=== PATIENT | male | born 1975 | race Two or more races ===

== ENCOUNTER → 2025-03-04 | Outpatient (BNVA) | payer MEDICAID, SELFPAY | END | disposition home or self-care (01) | PROVIDERS: PCP Nurse Practitioner Family; Referring Provider Nurse Practitioner Family; Visit Provider Nurse Practitioner Family | DX: B35.9 Dermatophytosis, unspecified (principal) | CPT/HCPCS: 99214 ==

== ENCOUNTER → 2025-03-08 | Outpatient (BNVA) | payer MEDICAID, SELFPAY | END | disposition home or self-care (01) | PROVIDERS: PCP Nurse Practitioner Primary Care; Referring Provider Nurse Practitioner Primary Care; Visit Provider Nurse Practitioner Primary Care | DX: Z71.2 Person consulting for explanation of examination or test findings (principal); I10 Essential (primary) hypertension; E78.5 Hyperlipidemia, unspecified; Z13.29 Encounter for screening for other suspected endocrine disorder; Z13.1 Encounter for screening for diabetes mellitus; Z11.3 Encounter for screening for infections with a predominantly sexual mode of transmission; Z28.21 Immunization not carried out because of patient refusal; Z12.5 Encounter for screening for malignant neoplasm of prostate | CPT/HCPCS: 99173; 99215 ==

== ENCOUNTER → 2025-03-15 | Outpatient (BNVA) | payer MEDICAID, SELFPAY | END | disposition home or self-care (01) | PROVIDERS: PCP Nurse Practitioner Family; Referring Provider Nurse Practitioner Family; Visit Provider Nurse Practitioner Family | DX: Z71.2 Person consulting for explanation of examination or test findings (principal); Z28.21 Immunization not carried out because of patient refusal; I10 Essential (primary) hypertension | CPT/HCPCS: 99213 ==

== ENCOUNTER → 2025-05-12 | Outpatient (BNVA) | payer MEDICAID, SELFPAY | END | disposition home or self-care (01) | PROVIDERS: PCP Nurse Practitioner Primary Care; Referring Provider Nurse Practitioner Primary Care; Visit Provider Nurse Practitioner Primary Care | DX: E78.2 Mixed hyperlipidemia (principal); I10 Essential (primary) hypertension; R94.5 Abnormal results of liver function studies; R73.03 Prediabetes | CPT/HCPCS: 99213 ==

== ENCOUNTER 2025-05-24 19:09 | Inpatient (IN) | payer MEDICAID, SELFPAY ==
--- NOTE | 2025-05-24 19:18 | EKG_ITS ---
[facility] Test Date: 2025-05-24 Pat Name: CHANTEL LEWIS Department: Room: - Gender: Male Track Sweeper: : 1975 Requested By: Sharonda Carter Order Number: [id number] Reading MD: Sharonda Carter Measurements Intervals [place] Rate: 82 P: 53 [place]: 195 QRS: 58 QRSD: 110 T: 55 QT: 377 QTc: 441 Interpretive Statements SINUS RHYTHM EARLY REPOLARIZATION [ST ELEVATION WITH NORMALLY INFLECTED T-WAVE] Compared to ECG 06/04/2022 19:23:47 Early repolarization now present Sinus tachycardia no longer present Myocardial infarct finding no longer present /store/S0/[id number]/ecg/[id number].pdf
--- NOTE | 2025-05-24 19:18 | PD.EDNEURO ---
Neuro Symptoms Deficit-RME/HPI General Chief Complaint: General Adult/Misc Complain Stated Complaint: UNABLE TO MOVE L) ARM, DROOPING L) FACE, LKW 1810 Time Seen by Provider: 05/24/25 19:18 Arrival date/time: 05/24/25 19:09 Limitations: no limitations RME / HPI RME / HPI Narrative: Dr. Betts?s Main ED Evaluation: 50yo male with a history of hemorrhagic CVA (2019), HTN, HLD BIB his daughter presents to the ED for complaints of weakness to the RUE and worsening slurred speech x 30 minutes [employer]AB[employer]. Stroke alert initiated at 1912. Patient's daughter states the patient was having right hand numbness on Friday that resolved. Tonight, he started having sudden onset RUE weakness and worsening slurred speech. Denies any headache, lightheadedness, dizziness, N/V, or any other associated symptoms. Denies tobacco or illicit drug use. Patient does drink a 6-pack of beers per day. Blood sugar here is 113. Related Data Home Medications ?Medication ?Instructions ?Recorded ?Confirmed lisinopril 10 mg tablet 10 mg PO QDAY 03/04/25 03/15/25 Previous Rx's ?Medication ?Instructions ?Recorded atorvastatin 20 mg tablet 20 mg PO QDAY #90 tabs 05/12/25 cholecalciferol (vitamin D3) 1,250 1,250 mcg PO QWEEK 6 weeks #6 caps 05/12/25 mcg (50,000 unit) capsule Allergies Allergy/AdvReac Type Severity Reaction Status Date / Time bee venom protein (honey bee) Allergy Severe Anaphylaxis Verified 05/24/25 19:14 Review of Systems Review of Systems Systems Reviewed: All systems reviewed, normal except as documented ED Exam General Limitations: Present no limitations General appearance: Present alert and in no apparent distress Head Head exam: Present atraumatic Eye Eye exam: Present normal appearance, PERRL and EOMI ENT ENT exam: Present normal exam, normal oropharynx and mucous membranes moist Neck Neck exam: Present normal inspection, full ROM and trachea midline Chest Chest inspection: Present normal inspection and symmetric chest wall rise Respiratory Respiratory exam: Present normal lung sounds bilaterally Cardiovascular Cardiovascular exam: Present regular rate, normal rhythm and normal heart sounds Abdominal Exam Abdominal exam: Present soft Extremities Exam Extremities exam: Present other (weakness to the RUE, full ROM of the LUE and BLE, sensations are intact) Back Exam Back exam: Present normal inspection and full ROM Neurological Exam Neurological exam: Present alert, oriented X3 and other (left facial droop, + dysarthria, weakness to the RUE, full ROM of the LUE and BLE) Psychiatric Psychiatric exam: Present normal affect and normal mood Skin Skin exam: Present warm, dry, intact and normal color Course Course Course Narrative: 1912: Stroke alert initiated. Quality Measures Suspected type of Stroke: TIA Tenecteplase given: Reason(s) TPA not given: Stroke severity too mild (non-disabling) (symptoms improving) not given stroke Orders Category Date Time Status Admit to Inpatient Status Routine Admission 05/24/25 22:36 Active Patient Condition Routine Admission 05/24/25 22:36 Ordered Bedside Blood Glucose NOW Care 05/24/25 19:18 Active COVID-19 Screening Questionnaire NOW Care 05/24/25 21:41 Active Retail Merchandising Manager NOW Care 05/24/25 19:18 Active Continuous Pulse Oximetry NOW Care 05/24/25 19:18 Completed EKG (ED ONLY) *Do not use* NOW Care 05/24/25 19:18 Completed In and Out Catheter NEEDED Care 05/24/25 19:18 Active Insert IV NOW Care 05/24/25 19:18 Active NIH Stroke Scale now Care 05/24/25 19:18 Active NPO NOW Care 05/24/25 19:18 Active Neuro Check Q4H Care 05/24/25 22:35 Active Notify provider NEEDED Care 05/24/25 22:36 Active Nurse Swallow Screen x1 Care 05/24/25 19:18 Active Consult to Neurology / Tele-Neurology Stat Cons 05/24/25 19:18 Active CA echo doppler complete Routine Exams 05/24/25 22:[address] angio stroke protocol Stat Exams 05/24/25 19:[address] stroke protocol Stat Exams 05/24/25 19:18 Completed EKG (ED Only) Stat Exams 05/24/25 19:18 Draft Alcohol, Blood Medical Routine Lab 05/24/25 22:33 Completed Ammonia Routine Lab 05/24/25 22:33 Received CBC AM DRAW Lab 05/25/25 05:00 Ordered CBC AM DRAW Lab 05/26/25 05:00 Ordered CBC AM DRAW Lab 05/27/25 05:00 Ordered CBC AM DRAW Lab 05/28/25 05:00 Ordered CBC AM DRAW Lab 05/29/25 05:00 Ordered CBC Stat Lab 05/24/25 19:25 Completed Comprehensive Metabolic Panel AM DRAW Lab 05/25/25 05:00 Ordered Comprehensive Metabolic Panel AM DRAW Lab 05/26/25 05:00 Ordered Comprehensive Metabolic Panel AM DRAW Lab 05/27/25 05:00 Ordered Comprehensive Metabolic Panel AM DRAW Lab 05/28/25 05:00 Ordered Comprehensive Metabolic Panel AM DRAW Lab 05/29/25 05:00 Ordered Comprehensive Metabolic Panel Stat Lab 05/24/25 19:25 Completed Drug Screen,Urine Stat Lab 05/24/25 20:26 Completed Lipid Panel AM DRAW Lab 05/25/25 05:00 Ordered Magnesium AM DRAW Lab 05/25/25 05:00 Ordered Magnesium Stat Lab 05/24/25 19:25 Completed Partial Thromboplastin Time Stat Lab 05/24/25 19:25 Completed Prothrombin Time with INR Stat Lab 05/24/25 19:25 Completed Troponin I Stat Lab 05/24/25 19:25 Completed Urinalysis, C/S if Indicated Stat Lab 05/24/25 20:26 Completed Acetaminophen Tab [Tylenol Tab] Med 05/24/25 22:35 Active 650 mg PO Q6H PRN Aspirin [Ecotrin] Med 05/24/25 20:14 Discontinued 81 mg PO X1 ONE Clopidogrel [Plavix] Med 05/24/25 20:14 Discontinued 75 mg PO X1 ONE Heparin Inj Med 05/25/25 06:00 Active 5,000 unit SC Q8HR Ondansetron Inj [Zofran Inj] Med 05/24/25 22:35 Active 4 mg IVP Q6H PRN Sodium Chloride 0.9% 1000 ml [Ns] 1,000 ml Med 05/24/25 22:45 Active IV 75 mls/hr Code Status Routine Oth 05/24/25 22:35 Ordered Oxygen Delivery NOW RT 05/24/25 19:18 Active Vital Signs Vital signs: Vital Signs Pulse Rate 88 05/24/25 19:19 Respiratory Rate 20 05/24/25 19:19 Blood Pressure 199/126 H 05/24/25 19:19 Pulse Oximetry (%) 98 05/24/25 19:19 Oxygen Delivery Method Room Air 05/24/25 19:19 Neuro Symptoms / Deficit MDM Narrative MDM Narrative:: Scribe Attestation: 05/24/25 - I, Chaya Rene, am scribing for and in the presence of Dr. Betts. Patient is a 50-year-old male with medical history notable for alcohol use disorder, hypertension, hyperlipidemia, prediabetes, prior hemorrhagic stroke presenting emergency department with concern for slurred speech, left-sided facial droop, weakness and numbness in the right upper extremity. Vital signs and exam as listed. Concern patient is having an acute stroke. Last known well approximately 20 minutes prior to arrival. Also concern for metabolic disturbance, among others. Patient does not appear acutely intoxicated, does have a history of alcohol withdrawal. Ordered labs, CT brain, CT angio of the head and neck as well as EKG. Labs without any acute hematologic or significant electrolyte abnormality, patient does have an AST of 69 ALT of 63, T. bili is normal, patient does not have any abdominal pain. Troponin not elevated. Head CT without any acute intracranial abnormalities. 1999: On re-evaluation, patient's slurred speech has resolved. Patient does have some tingling to his right hand, but has full movement of the RUE. Due to the patient's resolving symptoms, teleneurologist, Dr. Parsons, does not recommend TNKase at this time. Patient and his daughter are in agreement with this plan. Teleneurologist also recommends that we provide patient with aspirin 81 as well as Plavix 75. Does not recommend the full loading dose of aspirin given that patient symptoms are improving. 2129: Discussed case with the resident physician, attending Dr. Green from Hospitalist service regarding admission. Discussed patients ED course, exam findings, labs, and radiology results. The Hospitalist agrees to accept the patient for admission. Patient data External records reviewed:: [facility] previous records (Per chart review, patient was seen here on 06/04/22 for acute febrile illness.) Clinical information provided by:: patient and family (daughter) Social determinants that could affect healthcare access:: alcohol use Patient has the following chronic illnesses:: hemorrhagic CVA (2020), HTN, HLD How is presenting disease/condition affected by chronic disease/condition?: exacerbated by Evaluation data The following diagnostics were reviewed and interpreted by me:: lab results, radiology exam(s) and EKG tracing(s) Lab and/or radiology exams considered but not ordered:: none Interpretation Summary: EKG done at 1952, sinus rhythm, rate of 82, normal intervals, nonspecific ST-T changes, not a cardiac alert, according to my interpretation. [facility] [id number] Birthdate: 1975 Age/Sex: 50 / M Location: [facility]X Attending Dr: Ordering Physician: Sharonda Betts MD Date of Service: 05/24/25 Procedure(s): CT stroke protocol Accession Number(s): [id number] cc: Ramon Mead MD; Sharonda Betts MD~ Examination: CT brain head without contrast. 2-D sagittal coronal reconstructions Date and time of exam: May 24, 2025, 1922 hours, comparison June 04, 2022 INDICATIONS: Stroke alert, onset focal neurologic deficit including left-sided arm weakness today CTDI: vol (mGy): 51.7 DLP: (mGycm): 1019 Technique: Multiple CT axial sections of the brain have been obtained, 5 mm slice thickness. Contrast has not been administered. 2-D sagittal, coronal reconstructions have been obtained Low dose protocols were performed. One or more of the following dose reduction techniques were used; automated exposure control, adjustment of the mA and/or KV according to patient size, use of iterative reconstruction technique. Findings: No significant ventricular enlargement. Again noted small old infarct right basal ganglia Intra-axial or extra-axial hemorrhage density is not seen. No mass effect or midline shift Basal cisterns are not remarkable. Fourth ventricle is midline. Cranial vault intact. Impression: Negative for acute hemorrhage, mass effect or midline shift Dictated By: Ramon Mead MD Signed By: <Electronically signed by Ramon Mead MD in OV> 05/24/251927 [facility] Report Signed Patient: JUNE LEWISERICO [facility], [place]. Record#: [id number] Birthdate: 1975 Age/Sex: 50 / M Location: SERX Attending Dr: Ordering Physician: Sharonda Betts MD Date of Service: 05/24/25 Procedure(s): CT angio stroke protocol Accession Number(s): [id number] cc: Mich Rene MD; Ramon Mead MD; Sharonda Betts MD~ Examination: CTA carotids with intravenous contrast CTA brain, head with intravenous contrast. 2-D sagittal, coronal reconstructions. 3-D reconstructions. Exam date and time: May 24, 2025, 1930 hours INDICATIONS: Stroke alert onset focal neurologic deficit including right-sided numbness right-sided body weakness today CTDI: vol (mGy) 21.4 DLP: (mGycm) 434 Technique: Multiple CTA axial brain, head carotid images post intravenous contrast injection 75 cc, [id number]. 2-D sagittal, coronal reconstructions. 3-D reconstructions, 3-D post processing including vascular maximum intensity projection images. Low dose protocols were performed. One or more of the following dose reduction techniques were used; automated exposure control, adjustment of the mA and/or KV according to patient size, use of iterative reconstruction technique. Findings: No significant common carotid carotid bifurcation or internal carotid artery stenoses Dominant right vertebral artery with no critical vertebral artery stenoses in the neck Intracranial vertebral arteries basilar artery posterior cerebral branches fill with no large vessel occlusions Petrous juxtasellar supraclinoid portions internal carotid arteries intact No large vessel occlusions involving M1 segments middle cerebral arteries middle cerebral artery trifurcation vessels or anterior cerebral arteries IMPRESSION: No significant neck arterial stenoses No cerebral large vessel arterial occlusions or thrombus Dictated By: Ramon Mead MD Signed By: <Electronically signed by Ramon Mead MD in OV> 05/24/25 7000 Medications / Prescriptions Medications or Prescriptions considered but not ordered:: none Medication administrations:: Medication Administration History Acetaminophen (Acetaminophen 325 Mg Tablet) 650 mg PO Q6H PRN PRN Reason: Fever >100.4 Stop: 06/23/25 22:34 Aspirin (Aspirin Ec 81 Mg Tabec) 81 mg PO DAILY SONG Stop: 06/24/25 08:59 Atorvastatin Calcium (Atorvastatin Calcium 10 Mg Tablet) 20 mg PO HS SONG Stop: 06/24/25 20:59 Clopidogrel Bisulfate (Clopidogrel Bisulfate 75 Mg Tablet) 75 mg PO DAILY SONG Stop: 06/24/25 08:59 Diazepam (Diazepam Inj 5 Mg/Ml Vial 2 Ml) 5 mg IVP X1 PRN PRN Reason: Breakthrough Agitation Heparin Sodium (Porcine) (Heparin Sod Inj 5000 Unit/Ml Vial) 5,000 unit SC Q8HR [facility] Stop: 06/08/25 05:59 Sodium Chloride (Ns) 1,000 mls @ 75 mls/hr IV .[id number] [facility] Stop: 06/23/25 22:44 Thiamine HCl 100 mg/ Sodium (Chloride) 101 mls @ 202 mls/hr IV X1 ONE Stop: 05/24/25 23:16 Lorazepam (Lorazepam 0.5 Mg Tablet) 0.5 mg PO Q4HR PRN PRN Reason: CIWA Score 2-6 Stop: 05/29/25 22:43 Lorazepam (Lorazepam 0.5 Mg Tablet) 1 mg PO Q4HR PRN PRN Reason: CIWA SCORE 7-11 Stop: 05/29/25 22:43 Lorazepam (Lorazepam 0.5 Mg Tablet) 2 mg PO Q4HR PRN PRN Reason: CIWA SCORE 12-15 Stop: 05/29/25 22:43 Ondansetron HCl (Ondansetron Inj 2 Mg/Ml Inj 2 Ml) 4 mg IVP Q6H PRN; Protocol PRN Reason: NAUSEA OR VOMITING Stop: 06/23/25 22:34 Discontinued Medications Aspirin (Aspirin Ec 81 Mg Tabec) 81 mg PO X1 ONE Stop: 05/24/25 20:15 Last Admin: 05/24/25 20:20 Dose: 81 mg Documented By: AIMEE Clopidogrel Bisulfate (Clopidogrel Bisulfate 75 Mg Tablet) 75 mg PO X1 ONE Stop: 05/24/25 20:15 Last Admin: 05/24/25 20:20 Dose: 75 mg Documented By: AIMEE Folic Acid (Folic Acid Inj 1 Mg/0.2 Ml) 1 mg IVP X1 ONE Stop: 05/24/25 22:47 see above, if any Consultations Consultation(s) initiated? (list below): Yes Diagnosis Neuro Differential Diagnosis: other (See MDM) Most likely diagnosis given after review of the tests above:: see clinical impression below Admission Indicated Admission indicated?: indicated Admission Request Was there a request for admission?: Yes Admission Attestation Admission request attestation: Discussed case with [] from Hospitalist service regarding admission. Discussed patients ED course, exam findings, labs, and radiology results. The Hospitalist [agrees,declines] to accept the patient for admission. Disposition Plan Disposition Plan: Admit Critical Care Time Critical Care Time Critical Care Time: Yes Total Critical Care Time (min.): 35 Attestation: Due to a high probability of clinically significant, life threatening deterioration, the patient required my highest level of preparedness to intervene emergently and I personally spent this critical care time directly and personally managing the patient. This critical care time included obtaining a history; examining the patient; pulse oximetry; ordering and review of studies; arranging urgent treatment with development of a management plan; evaluation of patient's response to treatment; frequent reassessment; and, discussions with other providers. This critical care time was performed to assess and manage the high probability of imminent, life-threatening deterioration that could result in multi-organ failure. It was exclusive of separately billable procedures and treating other patients and teaching time. Please see MDM section and the rest of the note for further information on patient assessment and treatment.
[2025-05-24 19:19] VITALS: BP 199/126; PULSE 88; RESP 20; O2SAT 98
[2025-05-24 19:38] LABS: Basophils # (Auto) 0.1 Thou/mm3 (0.0-0.2); Basophils % (Auto) 1 % (0-2.5); Eosinophils # (Auto) 0.2 Thou/mm3 (0.0-0.5); Eosinophils % (Auto) 4 % (0-10); Hematocrit 43.3 % (41.0-53.0); Hemoglobin 15.0 g/dL (13.5-16.0); Immature Granulocytes Auto 0.01 Thou/mm3 (0.00-0.00); Lymphocytes # (Auto) 2.3 Thou/mm3 (1.0-4.8); Lymphocytes % (Auto) 36 % (10-50); Mean Corpuscular HGB Conc 34.6 g/dl (31.0-37.0); Mean Corpuscular Hemoglobin 31.0 pg (25.0-35.0); Mean Corpuscular Volume 90 fL (80-100); Monocytes # (Auto) 0.8 Thou/mm3 (0.0-0.8); Monocytes % (Auto) 12 % (0-12); Neutrophils # (Auto) 3.0 Thou/mm3 (1.8-7.7); Neutrophils % (Auto) 47 % (37-80); Nucleated Red Blood Cell # 0.00 Thou/mm3 (0.00-0.00); Nucleated Red Blood Cell % 0 /100 WBC (0); Platelet Count 202 Thou/mm3 (140-440); RDW Standard Deviation 41.3 fL (35.1-43.9); Red Blood Count 4.84 Miln/mm3 (4.50-5.90); White Blood Count 6.4 Thou/mm3 (3.8-10.6)
[2025-05-24 19:55] VITALS: PULSE 77; BMI 25.8
[2025-05-24 19:56] LABS: INR 1.0 (0.9-1.3); Partial Thromboplastin Time 29.0 Seconds (22.0-36.0); Prothrombin Time 10.5 Seconds (9.0-12.2)
[2025-05-24 20:00] LABS: Alanine Aminotransferase 63 U/L (10-49); Albumin, Serum 4.8 gm/dL (3.5-5.0); Albumin/Globulin Ratio 1.3 (1.2-2.2); Alkaline Phosphatase 99 U/L (46-116); Anion Gap 12 (7-16); Aspartate Amino Transferase 69 U/L (0-34); BUN/Creatinine Ratio 6 Ratio (12-20); Bilirubin,Total 0.4 mg/dL (0.3-1.2); Blood Urea Nitrogen < 5 mg/dL (9-23); Calcium 9.2 mg/dL (8.3-10.6); Calcium (Corrected) 9.2 mg/dL (8.5-10.1); Carbon Dioxide 26.5 mMol/L (20.0-31.0); Chloride 98 mMol/L (98-107); Creatinine (Component) 0.8 mg/dL (0.6-1.3); Estimated Creatinine Clearance 110.5 mL/min (>60); Globulin 3.8 gm/dL (2.3-3.5); Glucose 102 mg/dL (74-106); Magnesium 2.1 mg/dL (1.6-2.6); Osmolality,Calculated 269 (275-295); Potassium 3.7 mMol/L (3.4-5.1); Sodium 136 mMol/L (136-145); Total Protein 8.6 gm/dL (5.7-8.2); Troponin I < 0.020 ng/mL (0.0-0.045); eGFR > 60 See Note
[2025-05-24 20:01] VITALS: BP 175/107; PULSE 83; RESP 18; TEMP 36.9; O2SAT 95
--- NOTE | 2025-05-24 20:13 | PD.NEUROCONS ---
History of Present Illness Data of Consult Requesting Physician: Dr. Betts Consult Narrative History of present illness: [facility] Patient Name:???DEVON LEWIS Date of :???1975 Identification Number:??? Date of Service:???05/24/2025 19:14:16 Diagnosis:?R20.2 - Paresthesia of skin Impression: ?Right-sided numbness and weakness, improving (recurrent) ?H/o stroke ?DDx: TIA, acute stroke, focal seizure with Clinton's paralysis, mass lesion , hypertensive emergency vs. other ? ?Patient reports that he had sudden onset numbness in the right arm as well as weakness of the distal hand about an hour prior to ER arrival. He reports the exact same symptoms in 2019 when he was apparently diagnosed with his first stroke. CT head is negative for acute findings but there is evidence of an old lacunar stroke also on the R side (however would not explain prior R sided numbness). ? ?Explained to him that given that he thinks that his symptoms are largely better, even though NIHSS is 1, that acute thrombolytic therapy is not recommended. I explained to him that a stroke is still a consideration, but will other differentials for recurrent right-sided numbness and weakness also include seizures hence further workup for both is recommended. Dr. Betts, ER attending was also at bedside and explained the above to the patient and patient's daughter; they both expressed understanding and declined acute thrombolytic therapy, but are willing to stay back for further workup. Patient also appears to be hypertensive, hence hypertensive emergency is also a consideration. ? ?PLAN: ?- CTA head and neck, pending final read ?- Permissive hypertension up to 180/90 for the next 12 hours, then 140-160/80-90 for the next 12 hours ?- start DAPT with ASA 81 mg and Plavix 75 mg daily for 3 weeks, thereafter continue ASA 81 mg daily ?- MRI brain with and without contrast (due to concern for seizures as a differential) ?- Echocardiogram ?- PT/OT/Speech therapy ?- outpatient neurology follow up ? ?Discussed with Dr. Betts at bedside. Our recommendations are outlined below. Recommendations: ? Stroke/Telemetry Floor ? Neuro Checks ? Bedside Swallow Eval ? DVT Prophylaxis ? IV Fluids, Normal Saline ? Euglycemia and Avoid Hyperthermia (PRN Acetaminophen) Sign Out: ? Discussed with Emergency Department Provider Metrics: Last Known Well: 05/24/2025 18:30:00 Arrival Time: 05/24/2025 19:11:00 Activation Time: 05/24/2025 19:14:16 Initial Response Time: 05/24/2025 19:15:14Symptoms: R sided weakness and numbness. Initial patient interaction: 05/24/2025 19:28:46 NIHSS Assessment Completed: 05/24/2025 19:41:51Patient is not a candidate for Thrombolytic. Thrombolytic Medical Decision: 05/24/2025 19:56:54Patient was not deemed candidate for Thrombolytic because of following reasons: Stroke severity too mild (non-disabling) . Patient/Family declined . CT Head: I personally reviewed all the CT images that were available to me and it showed: No acute findings, old right basal ganglia infarct Primary Provider Notified of Diagnostic Impression and Management Plan on: 05/24/2025 20:01:58 History of Present Illness:Patient is a 50 year old Male. Patient was brought by private transportation with symptoms of R sided weakness and numbness. Patient is mostly Czech-speaking, staff member assists in translation. He states that he had just laid down for a bit, when his R arm went numb. He also felt like he was unable to terrazzo worker anything in the right hand hence he came to the ER for evaluation. He reports that he had the exact same symptoms in 2019 when he had his first stroke. He reports a history of hypertension as well as hyperlipidemia but is currently not on any antiplatelet or anticoagulant medications. He denies any history of seizures. On initial exam, patient appears alert and awake. He was able to answer all questions appropriately; subjectively, he feels that his symptoms are a lot better/improving. He did have mild sensory loss involving the right face and arm, NIHSS is 1. Slip Seat Coverer strength appeared weak on the right side according to the bedside exam however there was no drift noted on NIHSS testing. Past Medical History: ?Hypertension ?Hyperlipidemia ?Stroke Medications: No Anticoagulant use? No Antiplatelet use Reviewed EMR for current medications Allergies:? Reviewed Social History: Smoking: No Alcohol Use: Yes Family History: There is no family history of premature cerebrovascular disease pertinent to this consultation ROS : 14 Points Review of Systems was performed and was negative except mentioned in HPI. Past Surgical History: There Is No Surgical History Contributory To Today?s Visit Examination: BP(163/104),?Pulse(77),?Blood Glucose(113) 1A: Level of Consciousness - Alert; keenly responsive?+ 0 1B: Ask Month and Age - Both Questions Right?+ 0 1C: Blink Eyes & Squeeze Hands - Performs Both Tasks?+ 0 2: Test Horizontal Extraocular Movements - Normal?+ 0 3: Test Visual Clark - No Visual Loss?+ 0 4: Test Facial Palsy (Use Grimace if Obtunded) - Normal symmetry?+ 0 5A: Test Left Arm Motor Drift - No Drift for 10 Seconds?+ 0 5B: Test Right Arm Motor Drift - No Drift for 10 Seconds?+ 0 6A: Test Left Leg Motor Drift - No Drift for 5 Seconds?+ 0 6B: Test Right Leg Motor Drift - No Drift for 5 Seconds?+ 0 7: Test Limb Ataxia (FNF/Heel-Wellington) - No Ataxia?+ 0 8: Test Sensation - Mild-Moderate Loss: Less Sharp/More Dull?+ 1 9: Test Language/Aphasia - Normal; No aphasia?+ 0 10: Test Dysarthria - Normal?+ 0 11: Test Extinction/Inattention - No abnormality?+ 0 NIHSS Score:?1 Pre-Morbid Modified Grayson Scale: 0 Points = No symptoms at all Spoke with :?Dr. Betts This consult was conducted in real time using interactive audio and video technology. Patient was informed of the technology being used for this visit and agreed to proceed. Patient located in hospital and provider located at home/office setting. Patient is being evaluated for possible acute neurologic impairment and high probability of imminent or life-threatening deterioration. I spent total of 40 minutes providing care to this patient, including time for face to face visit via telemedicine, review of medical records, imaging studies and discussion of findings with providers, the patient and/or family. Dr Dakotah Parsons [facility] For Inpatient follow-up with [facility] physician please call [facility] at . As we are not an outpatient service for any post hospital discharge needs please contact the hospital for assistance. If you have any questions for the [facility] physicians or need to reconsult for clinical or diagnostic changes please contact us via [facility] at . Non-radiologist review of imaging performed to assist with emergent clinical decision-making. Remote physician workstations do not possess the same resolution, calibration, or diagnostic capabilities as hospital-based radiology reading stations, and formal radiologist read is necessary. Signature :Mars Parsons cc:: cc: Meds Home Medications and Allergies Home Medications ?Medication ?Instructions ?Recorded ?Confirmed ?Type lisinopril 10 mg tablet 10 mg PO QDAY 03/04/25 03/15/25 History Allergies Allergy/AdvReac Type Severity Reaction Status Date / Time bee venom protein (honey bee) Allergy Severe Anaphylaxis Verified 05/24/25 19:14 Exam - Neurology Vital Signs Temp Pulse Resp BP Pulse Ox O2 Del Method 98.5 F 83 18 175/107 H 95 Room Air 05/24/25 20:01 05/24/25 20:01 05/24/25 20:01 05/24/25 20:01 05/24/25 20:01 05/24/25 20:01 Results Labs 05/24/25 19:25 05/24/25 19:25 Labs: Short CBC 05/24/25 Range/Units 19: WBC 6.4 (3.8-10.6) Thou/mm3 Hgb 15.0 (13.5-16.0) g/dL Hct 43.3 (41.0-53.0) % Plt Count 202 (140-440) Thou/mm3 BMP 05/24/25 19:25 Sodium 136 Potassium 3.7 Chloride 98 Carbon Dioxide 26.5 BUN < 5 L Creatinine 0.8 Glucose 102 Calcium 9.2 Cardiac Enzymes 05/24/25 Range/Units 19:25 Troponin I < 0.020 (0.0-0.045) ng/mL Liver Function 05/24/25 Range/Units 19:25 Total Bilirubin 0.4 (0.3-1.2) mg/dL AST 69 H (0-34) U/L ALT 63 H (10-49) U/L Alkaline Phosphatase 99 (46-116) U/L Albumin 4.8 (3.5-5.0) gm/dL
[2025-05-24] MEDS: CLOPIDOGREL BISULFATE 75 MG TABLET PO (20:20)
[2025-05-24] MEDS: ASPIRIN EC 81 MG TABEC PO (20:20)
[2025-05-24 20:34] LABS: Collection Type, Urine Clean Catch; Squamous Epithelial Cell,Urine 0 /hpf (0-5)
[2025-05-24 20:39] LABS: Bilirubin,Urine Negative (Negative); Blood,Urine Negative (Negative); Clarity,Urine Clear (Clear/Hazy); Color,Urine Colorless (Lt Yel-Yel); Culture Indicated,Urine Not Indicated; Glucose, Urine Negative (Negative); Ketones,Urine Negative (Negative); Leukocyte Esterase,Urine Negative (Negative); Nitrite,Urine Negative (Negative); PH,Urine 6.5 (5.0-7.0); Protein,Urine Negative (Neg - Trace); RBC,Urine 1 /hpf (0-3); Specific Gravity,Urine 1.010 (1.001-1.035); Urobilinogen,Urine Negative mg/dL (0.0-1.0); WBC,Urine < 1 /hpf (0-5)
[2025-05-24 20:46] LABS: Amphetamine/Methamp Scrn,U Negative (Negative); Barbiturate Screen,Urine Negative (Negative); Benzodiazepines Screen,Urine Negative (Negative); Benzoylecgonine Screen, Ur Negative (Negative); Fentanyl Screen,Urine Negative (Negative); Opiate Screen,Urine Negative (Negative); THC Screen,Urine Negative (Negative)
[2025-05-24 21:03] VITALS: BP 131/93; PULSE 77; RESP 18; O2SAT 96
[2025-05-24 22:13] VITALS: BP 161/108; PULSE 84; RESP 19; TEMP 36.6; O2SAT 96
--- NOTE | 2025-05-24 22:40 | ECHO_ITS ---
Patient Info Name: Jude Jose Age: 50 years : 1975 Gender: Male Ht: 175 cm Wt: 79 kg BSA: 1.98 m2 BP: 132 / 86 mmHg HR: 80 bpm Exam Date: 05/25/2025 7:14 AM Admit Date: 05/24/2025 Site: [facility] Room Number: [id number] Patient Status: I Exam Type: CA echo doppler complete Vp Of Marketing: Dara Trinidad Ordering Physician: Reynaldo Ortega Study Info Indications Stroke Rule Out - Contrast/Agitated Saline Contrast/Ag. Saline: Agitated Saline Amount: --- ml Primary Location: S2NX Left Ventricular Outflow Tract Name Value Normal LVOT 2D LVOT Diameter 1.9 cm LVOT Doppler LVOT Peak Velocity 108 cm/s LVOT Mean Gradient 3 mmHg LVOT VTI 23 cm LVOT VTI/AV VTI Ratio 1.0 LVOT Stroke Volume 65 ml Pulmonic Valve Name Value Normal PV Doppler PV Peak Velocity 106 cm/s Mitral Valve Name Value Normal MV Doppler MV Decel Surry 363 cm/s2 MV PHT 63 ms MV Area (PHT) 3.5 cm2 4.0-5.0 MV Diastolic Function MV E Peak Velocity 79 cm/s MV A Peak Velocity 90 cm/s MV E/A 0.9 MV Annular TDI MV Septal e' Velocity 6.7 cm/s MV E/e' (Septal) 11.8 MV Lateral e' Velocity 5.2 cm/s MV E/e' (Lateral) 15.2 MV e' Average 5.98 cm/s MV E/e' (Average) 13.5 Tricuspid Valve Name Value Normal TV Regurgitation Doppler TR Peak Velocity 225 cm/s Estimated PAP/RSVP RA Pressure 3 mmHg <=5 PA Systolic Pressure 23 mmHg <36 RV Systolic Pressure 23 mmHg <36 Aortic Valve Name Value Normal AV 2D/MM AV Cusp Sep (MM) 1.4 cm AV Doppler AV Peak Velocity 122 cm/s AV Mean Gradient 3 mmHg AV VTI 24 cm AV Area (Cont Eq VTI) 2.7 cm2 >=3.0 AV Area (Cont Eq Mat) 2.5 cm2 AV DI (Mat) 0.89 AV Regurgitation 2D LVOT Area 2.8 cm2 Ventricles Name Value Normal LV Dimensions 2D/MM IVS Diastolic Thickness (2D) 1.0 cm 0.6-1.0 LVID Diastole (2D) 4.4 cm 4.2-5.8 LVIW Diastolic Thickness (2D) 1.0 cm 0.6-1.0 LVID Systole (2D) 2.8 cm 2.5-4.0 LVOT Diameter 1.9 cm LV Mass (2D Cubed) 147.83 g 88.00-224.00 LV Mass Index (2D Cubed) 75 g/m2 49-115 Relative Wall Thickness (2D) 0.45 <=0.42 IVS/LVIW Diastolic Thickness (2D) 1.00 0.00-1.50 LV Fractional Shortening/Ejection Fraction 2D/MM LV Fractional Shortening (2D) 36 % 25-43 LV EF (2D Teichholz) 66 % Atria Name Value Normal LA Dimensions LA Volume (4C A-L) 45 ml LA Volume (BP A-L) 42 ml Left Ventricle Left ventricular chamber dimension is normal. Left ventricular systolic function is normal with visually estimated ejection fraction of 60-65%. There is concentric remodeling noted in the left ventricle. Left ventricular segmental wall motion is normal. There is grade I diastolic dysfunction in the left ventricle. Right Ventricle Right ventricular chamber dimension is normal. Right ventricular systolic function is normal. Left Atrium Left atrial chamber dimension is normal. Right Atrium Right atrial chamber dimension is normal. Aortic Valve The aortic valve is trileaflet. There is no aortic valve sclerosis. There is no aortic valve stenosis with a peak velocity of 122 cm/s, mean gradient of 3 mmHg, and aortic valve area of 2.7 cm2. There is no aortic valve regurgitation. Pulmonic Valve The pulmonic valve is normal. There is no pulmonic valve stenosis. There is no pulmonic regurgitation. Mitral Valve The mitral valve has normal leaflets. There is no mitral valve stenosis. There is no mitral valve regurgitation. Tricuspid Valve The tricuspid valve leaflets are normal. There is no tricuspid valve stenosis. There is mild tricuspid valve regurgitation. No pulmonary hypertension, estimated pulmonary arterial systolic pressure is 23 mmHg and systemic blood pressure of 132 mmHg in systole. Pericardium/Pleural The pericardium appears normal. There is trivial pericardial effusion with no tamponade. No pleural effusion visualized. Inferior Vena Cava Normal inferior vena cava with >50% collapse upon inspiration consistent with normal right atrial pressure, 3 mmHg. Aorta The aortic measurements are indexed to age and body surface area. The aortic root at the sinus of Valsalva is not well visualized. The prox ascending aorta is not well visualized. Summary 1. Bubble study positive for PFO. Recommend JULIÁN for further evaluation. 2. Left ventricle size is normal and systolic function is normal. Estimated ejection fraction is 60-65%. There is grade I diastolic dysfunction. 3. Right ventricle chamber size is normal and systolic function is normal. Estimated RVSP is 23 mmHg. 4. There is mild tricuspid valve regurgitation. 5. Normal IVC with estimated RA pressure 3 mmHg. Report Signatures Finalized by Kuldeep Ventura on 05/25/2025 11:30 AM
--- NOTE | 2025-05-24 22:41 | XR_ITS ---
Examination: Abdomen sonogram, Limited Date and time of exam: May 24, 2025, 11:36 p.m. INDICATIONS: Alcohol abuse disorder, years Technique: Real-time ford scale transabdominal sonographic images of the upper abdomen obtained. Findings: Normal gallbladder. Normal common bile duct 0.4 cm Pancreatic head 2.5 cm Liver 16.2 cm fatty infiltration no focal liver lesions Normal hepatopetal portal venous flow Patent IVC IMPRESSION: Normal gallbladder Normal common bile duct No focal liver lesions
--- NOTE | 2025-05-24 22:50 | ESHP_ITS ---
Documentation for date of: 05/24/25 [facility] History of Present Illness History of present illness: HPI: 50-year-old male past medical history of hemorrhagic CVA in 2019, hypertension, hyperlipidemia, brought in by his daughter to the ED in the evening of 05/24/2025 after a resolved episode of weakness in the right upper extremity. Stroke alert was called at 1913 on 05/24/2025. Patient presented within 1 hour of last known well. The patient drank 18 [place] Light's and fell asleep. 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 This lasted for about 20 minutes but improved by the time he arrived to the ED. He described a similar feeling when he had his hemorrhagic stroke back in 2019. He denied feeling dizzy, nausea or vomiting, or diarrhea. He was found to have no acute hemorrhage on head CT. There is a chronic small old infarct in the right basal ganglia. He had no focal neurological deficits on exam. Labs were mostly unremarkable minus mild AST ALT elevation. Teleneuro was consulted and did not recommend thrombolytic therapy because the neurological deficits were not debilitating. NIHSS was 1 per teleneuro. Patient was admitted for stroke rule out. ED Course: * Significant vitals on arrival: BP 199/126 on arrival, remainder of vitals within normal limits. * Significant labs: AST 69, ALT 63 * Imaging: Head CT negative for acute hemorrhage. Small old infarct right basal ganglia. Head neck CTA showed no significant neck arterial stenosis, no cerebral large vessel arterial occlusion or thrombus. EKG showed a sinus rhythm with rate of 82, QTc 441. Liver ultrasound showed a 16.2 cm fatty infiltrated liver with no focal lesions, normal hepatopetal portal venous flow, normal gallbladder, normal common bile duct. * Urine: Ethyl alcohol 247.2. * ED intervention: Patient received aspirin 81, clopidogrel 75, 1 L normal saline, and a thiamine and folic acid supplement. History: * Past medical history: As above in HPI * Surgical history: Previous hernia repair * Social history: Drinks 2-6 beers daily since 2021. Denies tobacco or illicit drug use Allergies: * No known drug allergies. Home Medications: (Pending Med Rec) * Atorvastatin 20 mg daily * Vitamin D3 supplement * Lisinopril 10 mg daily CODE STATUS: Full Code Review of Systems Review of Systems Narrative Review of Systems: Review of Systems: * General: Denies fevers, chills. * HEENT: Denies headache, congestion, or sore throat. * Cardiac: Denies chest pain or palpitations. * Pulmonary: Denies shortness of breath or cough. * GI: Denies nausea, vomiting, diarrhea, constipation, melena, or hematochezia. * : Denies dysuria, hematuria, frequency, or urgency. * MSK: Right upper extremity weakness and numbness of 20 minutes duration that started about an hour before presentation. Denies pain in the extremities, joints, or myalgias. * Neuro: Denies weakness, numbness, vision changes, or speech difficulty. Exam Vital Signs Temp Pulse Resp BP Pulse Ox O2 Del Method 98 F 84 19 161/108 H 96 Room Air 05/24/25 22:13 05/24/25 22:13 05/24/25 22:13 05/24/25 22:13 05/24/25 22:13 05/24/25 22:13 Narrative Exam General: Awake and in no acute distress. Conversational and non-toxic appearing. Neurologic: GCS 15. Alert and oriented x4, no gross neurological deficit, and patient able to move all 4 extremities, Romberg test negative, NIHSS 0. HEENT: Normocephalic, atraumatic, mucous membranes moist. Pupils reactive to light. Heart: Regular rate and rhythm, normal S1 and S2, no murmurs. Lungs: Clear to auscultation bilaterally with no wheezing or crackles. Abdomen: Soft, nondistended, nontender, positive bowel sounds. No guarding or rebound tenderness. Extremities: No edema. 2+ radial and dorsalis pedis pulses bilaterally. Skin: Warm. Dry. No rash or ecchymoses. Results: Labs 05/24/25 19:25 05/24/25 19:25 Labs: Short CBC 05/24/25 Range/Units 19:25 WBC 6.4 (3.8-10.6) Thou/mm3 Hgb 15.0 (13.5-16.0) g/dL Hct 43.3 (41.0-53.0) % Plt Count 202 (140-440) Thou/mm3 BMP 05/24/25 19:25 Sodium 136 Potassium 3.7 Chloride 98 Carbon Dioxide 26.5 BUN < 5 L Creatinine 0.8 Glucose 102 Calcium 9.2 Cardiac Enzymes 05/24/25 Range/Units 19:25 Troponin I < 0.020 (0.0-0.045) ng/mL Liver Function 05/24/25 Range/Units 19:25 Total Bilirubin 0.4 (0.3-1.2) mg/dL AST 69 H (0-34) U/L ALT 63 H (10-49) U/L Alkaline Phosphatase 99 (46-116) U/L Albumin 4.8 (3.5-5.0) gm/dL Urine 05/24/25 Range/Units 20:26 Urine Color Colorless A (Lt Yel-Yel) Urine Clarity Clear (Clear/Hazy) Urine pH 6.5 (5.0-7.0) Ur Specific [place] 1.010 (1.001-1.035) Urine Protein Negative (Neg - Trace) Urine Glucose (UA) Negative (Negative) Quality Measures Quality Measures stroke Suspected type of Stroke: TIA Tenecteplase given: Reason(s) Tenecteplase not given: Stroke severity too mild (non-disabling) (symptoms improving) not given Rehab services: PT evaluation ordered and Speech Language Pathology eval ordered VTE Prophylaxis: pharmaceutical Antithrombotic by day 2:: ordered Statin ordered: >75 y/o moderate or high intensity dose Anticoagulation ordered for A- fib or flutter (current or hx): ordered Medications Home Medications and Allergies Home Medications ?Medication ?Instructions ?Recorded ?Confirmed ?Type lisinopril 10 mg tablet 10 mg PO QDAY 03/04/2505/25 History ketoconazole 2 % topical cream 1 applic topical BID 05/25/25 History Allergies Allergy/AdvReac Type Severity Reaction Status Date / Time bee venom protein (honey bee) Allergy Severe Anaphylaxis Verified 05/24/25 19:14 Visit Medications Acetaminophen (Acetaminophen 325 Mg Tablet) 650 mg PO Q6H PRN PRN Reason: Fever >100.4 Stop: 06/23/25 22:34 Aspirin (Aspirin Ec 81 Mg Tabec) 81 mg PO DAILY [facility] Stop: 06/24/25 08:59 Atorvastatin Calcium (Atorvastatin Calcium 10 Mg Tablet) 20 mg PO HS [facility] Stop: 06/24/25 20:59 Clopidogrel Bisulfate (Clopidogrel Bisulfate 75 Mg Tablet) 75 mg PO DAILY [facility] Stop: 06/24/25 08:59 Diazepam (Diazepam Inj 5 Mg/Ml Vial 2 Ml) 5 mg IVP X1 PRN PRN Reason: Breakthrough Agitation Folic Acid (Folic Acid Inj 1 Mg/0.2 Ml) 1 mg IVP X1 ONE Stop: 05/24/25 22:47 Heparin Sodium (Porcine) (Heparin Sod Inj 5000 Unit/Ml Vial) 5,000 unit SC Q8HR [facility] Stop: 06/08/25 05:59 Sodium Chloride (Ns) 1,000 mls @ 75 mls/hr IV .[id number] [facility] Stop: 06/23/25 22:44 Thiamine HCl 100 mg/ Sodium (Chloride) 101 mls @ 202 mls/hr IV X1 ONE Stop: 05/24/25 23:16 Lorazepam (Lorazepam 0.5 Mg Tablet) 0.5 mg PO Q4HR PRN PRN Reason: CIWA Score 2-6 Stop: 05/29/25 22:43 Lorazepam (Lorazepam 0.5 Mg Tablet) 1 mg PO Q4HR PRN PRN Reason: CIWA SCORE 7-11 Stop: 05/29/25 22:43 Lorazepam (Lorazepam 0.5 Mg Tablet) 2 mg PO Q4HR PRN PRN Reason: CIWA SCORE 12-15 Stop: 05/29/25 22:43 Ondansetron HCl (Ondansetron Inj 2 Mg/Ml Inj 2 Ml) 4 mg IVP Q6H PRN; Protocol PRN Reason: NAUSEA OR VOMITING Stop: 06/23/25 22:34 Discontinued Medications Aspirin (Aspirin Ec 81 Mg Tabec) 81 mg PO X1 ONE Stop: 05/24/25 20:15 Last Admin: 05/24/25 20:20 Dose: 81 mg Clopidogrel Bisulfate (Clopidogrel Bisulfate 75 Mg Tablet) 75 mg PO X1 ONE Stop: 05/24/25 20:15 Last Admin: 05/24/25 20:20 Dose: 75 mg Assessment & Plan Plan Summary: 50-year-old male past medical history of hemorrhagic CVA in 2019, hypertension, hyperlipidemia, brought in by his daughter to the ED in the evening of 05/24/2025 after a resolved episode of weakness in the right upper extremity. Stroke alert was called at 1913 on 05/24/2025. He was found to have no acute hemorrhage on head CT. He had no focal neurological deficits on exam. Teleneuro was consulted and did not recommend thrombolytic therapy because the neurological deficits were not debilitating. NIHSS was 1 per teleneuro. Patient was admitted for stroke rule out. #Acute right upper extremity weakness secondary to #CVA versus #TIA versus #Alcohol intoxication versus #Seizure? * Patient presented with a 20-minute episode of what he described as right upper extremity weakness and loss of cement finisher helper strength that began 1 hour before presentation * Head CT negative for acute hemorrhage. Small old infarct right basal ganglia. Head neck CTA showed no significant neck arterial stenosis, no cerebral large vessel arterial occlusion or thrombus. * Upon arrival his NIHSS score was 1 per telemetry neuro, who did not recommend thrombolytic therapy due to non-debilitating neurological deficits * The fact that the patient had complete religious of his right upper extremity weakness upon presentation to the ED may reinforce TIA etiology * Patient mentioned that he drank 18 beers prior to presentation, consider alcoholic intoxication * Seizure may also be a differential though less likely, patient has no history of seizures * Hepatic encephalopathy was also considered, however this hypothesis was weakened by a normal ammonia level. A 16.2 cm fatty infiltrated liver was demonstrated on ultrasound. T. bili was 0.4. Given this data, other differentials have stronger arguments. Plan: * Aspirin 81 mg p.o. daily * Plavix 75 mg p.o. daily * Atorvastatin 40 mg p.o. at bedtime * MRI Brain ordered * Neuro Checks Q4 hours * Bedside Swallow Eval * Head of Bed 30 Degrees * DVT prophylaxis-heparin 5000 units subcu every 8 hours * Lipid panel ordered * A1c ordered * Permissive hypertension * Swallow eval * Echo ordered * Physical therapy ordered * Folate 1 mg daily * Thiamine 100 mg daily * Neurology consulted * CIWA protocol: * Lorazepam 0.5 mg p.o. for CIWA 2-6 * Lorazepam 1 mg p.o. for CIWA 7-11 * Lorazepam 2 mg p.o. for CIWA 12-15 * Diazepam 5 mg IV push as needed for breakthrough agitation #History of previous hemorrhagic CVA * Patient described similar feelings on presentation when he had a hemorrhagic CVA in 2019. He underwent an extensive course of rehabilitation. 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 Therefore, he never had the procedure. * It is not known if the patient has any residual deficits due to this hemorrhagic CVA event in 2019 Plan: * No direct intervention at this time * Treating acute focal neurological deficit as above #Hypertensive urgency #Hypertension Stage II * Patient presented with BP 199/126 * No evidence of endorgan damage: Creatinine, troponin within normal limits * BP improved to 145/97 on admission Plan: * Allowing for permissive hypertension at this time in the presence of acute focal neurological deficit * Consider restarting home lisinopril 10 mg daily after 24 hours #Hyperlipidemia * Per chart review history * Patient taking atorvastatin 20 mg Plan: * Atorvastatin 40 mg nightly Hospital Maintenance: DVT ppx: Heparin 5000 units SQ every 8 hours Diet: Regular pending swallow screen IV lines: Peripheral IVs Code status: Full code Dispo: Telemetry monitoring floor, MRI of the brain ordered, neurochecks Q4, CIWA protocol in place. Patient was seen and discussed with my attending physician Dr. Norma MCKEE and my senior resident Dr. Giuseppe MCKEE PGY-2. Reynaldo Ortega DO PGY-1. Attending Provider Attestation/Addendum I have seen and examined the patient. I was physically present for the montiel portions of the services provided including history, physical exam, diagnosis, treatment plans and orders. I agree with assessment and plan of care as documented by residents. After examination of the patient and review of the clinical data I feel that this patient needs admission to the hospital for further treatment/evaluation. Even though this this note was carefully revised there may still be minor errors in web editor due to voice recognition software. Vicente Green MD
[2025-05-24 23:02] LABS: Alcohol, Blood Medical 247.2 mg/dL (0-10.0)
[2025-05-24 23:05] LABS: Ammonia 32 uMol/L (11-32)
[2025-05-24 23:12] VITALS: BP 135/97; PULSE 92; RESP 15; O2SAT 95
[2025-05-24 23:20] LABS: Thyroid Stimulating Hormone 1.88 uIU/mL (0.55-4.78); Vitamin B12 645 pg/mL (211-911)
[2025-05-24] MEDS: THIAMINE INJ 100 MG in SODIUM CHLORIDE 0.9% 100 ML 202 MG IV (23:20)
[2025-05-24] MEDS: SODIUM CHLORIDE 0.9% 1000 ML 1,000 ML 75 ML IV (23:20)
[2025-05-24] MEDS: FOLIC ACID INJ 1 MG/0.2 ML IVP (23:21)
[2025-05-25] VITALS (7 sets, daily range): BP systolic 132–174; BP diastolic 86–102; PULSE 78–110; RESP 12–23; TEMP 36.2–36.4; O2SAT 95–98; BMI 24.7; BMI 25.1
--- NOTE | 2025-05-25 | XR_ITS ---
Examinations: MRI Brain without intravenous contrast. MRI brain with intravenous contrast MRA brain with intravenous contrast. MRA brain without intravenous contrast MRA neck with intravenous contrast Date and time of exam: May 25, 2025, 0749 hours INDICATIONS: History hemorrhagic stroke 2019, onset weakness in the right upper extremity beginning at May 24, 2025 Technique: Multiple axial and sagittal images of the brain have been obtained Siemens high-resolution 1.5 Lin short bore scanner is utilized. Sagittal sections, T1-weighted, TR 500, TE 14 Axial sections proton density and T2-weighted, TR 3,000, TE 34, TR 3,000, TE 91 Inversion recovery axial images, TR 9,260, TE 111, TI 2,500 Diffusion weighted images, axial sections, TR 4,800, TE 128, B value 1,000 Axial sections, ADC map, TR 4,800, TE 128. Contrast images have been obtained post intravenous 20 cc Gadolinium. T1-weighted axial and coronal images post contrast have been obtained. Angiographic images of neck and brain are obtained pre and post contrast. 3-D post processing performed, including brain, extracranial neck arterial maximum intensity projections Findings: Sellaturcica is not enlarged. The optic chiasm and infundibular stalk are not remarkable. Prepontine and interpeduncular cisterns are not enlarged. No localized enlargement of the medulla or reynaldo. Fourth ventricle and cerebellar tonsils normal in position. Subacute hemorrhage is not seen. Fourth ventricle is midline. Mass in the cerebellopontine angle region is not evident. 7th and 8th nerve complexes exhibits symmetry. Globes are symmetrical with no retro-orbital mass. Increased white matter signal evident, old infarcts in the basal ganglia and left parietal lobe Diffusion-weighted images demonstrate no focus of restricted diffusion. Mass-effect upon the ventricular system is not identified. Abnormal contrast enhancement is not seen. MRA brain carotid images no significant carotid stenoses, no large vessel occlusions Impression: Negative for acute hemorrhage mass effect or midline shift No acute infarct Old infarcts as above
[2025-05-25] MEDS: HEPARIN SOD INJ 5000 UNIT/ML VIAL SC ×3 (05:05→21:09)
[2025-05-25 06:21] LABS: Basophils # (Auto) 0.1 Thou/mm3 (0.0-0.2); Basophils % (Auto) 1 % (0-2.5); Eosinophils # (Auto) 0.2 Thou/mm3 (0.0-0.5); Eosinophils % (Auto) 3 % (0-10); Hematocrit 43.1 % (41.0-53.0); Hemoglobin 14.7 g/dL (13.5-16.0); Immature Granulocytes Auto 0.02 Thou/mm3 (0.00-0.00); Lymphocytes # (Auto) 1.0 Thou/mm3 (1.0-4.8); Lymphocytes % (Auto) 15 % (10-50); Mean Corpuscular HGB Conc 34.1 g/dl (31.0-37.0); Mean Corpuscular Hemoglobin 30.8 pg (25.0-35.0); Mean Corpuscular Volume 90 fL (80-100); Monocytes # (Auto) 0.8 Thou/mm3 (0.0-0.8); Monocytes % (Auto) 12 % (0-12); Neutrophils # (Auto) 4.7 Thou/mm3 (1.8-7.7); Neutrophils % (Auto) 70 % (37-80); Nucleated Red Blood Cell # 0.00 Thou/mm3 (0.00-0.00); Nucleated Red Blood Cell % 0 /100 WBC (0); Platelet Count 180 Thou/mm3 (140-440); RDW Standard Deviation 42.2 fL (35.1-43.9); Red Blood Count 4.78 Miln/mm3 (4.50-5.90); White Blood Count 6.8 Thou/mm3 (3.8-10.6)
[2025-05-25 06:33] LABS: Glucose Estimated Average 114 mg/dL (80-131); Hemoglobin A1C 5.6 % Hgb (4.8-6.0)
[2025-05-25 06:44] LABS: Alanine Aminotransferase 64 U/L (10-49); Albumin, Serum 4.7 gm/dL (3.5-5.0); Albumin/Globulin Ratio 1.4 (1.2-2.2); Alkaline Phosphatase 95 U/L (46-116); Anion Gap 14 (7-16); Aspartate Amino Transferase 83 U/L (0-34); BUN/Creatinine Ratio 6 Ratio (12-20); Bilirubin,Total 0.7 mg/dL (0.3-1.2); Blood Urea Nitrogen < 5 mg/dL (9-23); Calcium 9.1 mg/dL (8.3-10.6); Calcium (Corrected) 9.1 mg/dL (8.5-10.1); Carbon Dioxide 26.4 mMol/L (20.0-31.0); Cardiac Risk Estimate 1.9 RATIO (4.0-6.7); Chloride 103 mMol/L (98-107); Cholesterol 192 mg/dL (132-200); Creatinine (Component) 0.8 mg/dL (0.6-1.3); Estimated Creatinine Clearance 110.5 mL/min (>60); Globulin 3.3 gm/dL (2.3-3.5); Glucose 93 mg/dL (74-106); HDL Cholesterol 103 mg/dL (40-60); LDL Cholesterol,Calculated 74 mg/dL (0-130); Magnesium 1.8 mg/dL (1.6-2.6); Osmolality,Calculated 282 (275-295); Potassium 4.3 mMol/L (3.4-5.1); Sodium 143 mMol/L (136-145); Total Protein 8.0 gm/dL (5.7-8.2); Triglycerides 75 mg/dL (30-150); eGFR > 60 See Note
[2025-05-25 06:47] LABS: Folate > 24.00 ng/mL (>5.38)
[2025-05-25] MEDS: ASPIRIN EC 81 MG TABEC PO (09:09)
[2025-05-25] MEDS: CLOPIDOGREL BISULFATE 75 MG TABLET PO (09:09)
[2025-05-25] MEDS: FOLIC ACID 1 MG TABLET PO (09:09)
[2025-05-25] MEDS: THIAMINE 100 MG TABLET PO (09:09)
--- NOTE | 2025-05-25 10:10 | ESPR_ITS ---
<Statement entered by Ervin Asher MD - 05/25/25 14:57> Overnight admission for CVA workup. Seen and examined at bedside and patient resting comfortably in bed. MRI/MRA brain did not show any acute infarcts but old infarcts noted in basal ganglia and left parietal lobe. Echo with bubble study positive for PFO still cardiology consulted and ordered transesophageal echo. Other echo findings showed EF 60 to 65%, grade 1 diastolic dysfunction. Will continue aspirin, Plavix, statin, follow-up neuro recommendations as well as ELIAN results. CIWA protocol placed in addition to PRN librium as patient states he drinks six 24 ounce beers per day. ----- Note reviewed and agree with care plan as documented. Please refer to the note below for further details. Plan discussed with attending physician Dr. Timmy Asher MD PGY-2 Internal Medicine Documentation for date of: 05/25/25 Subjective Subjective Interval history: Patient assessed and had no acute neuro deficits Patient states he has been drinking 6 beers per day for last 5 years Denies any withdrawal hx, denies seizure history Echo showed pfo, tte ordered Ordered steroid cream for itchy/erythematous genital region Exam Vital Signs Temp Pulse Resp BP Pulse Ox O2 Del Method 97.1 F 94 23 H 174/100 H 96 Room Air 05/25/25 08:00 05/25/25 08:00 05/25/25 08:00 05/25/25 08:00 05/25/25 08:00 05/25/25 08:00 Narrative Exam General: No acute distress; A&Ox3, tremor Skin: Warm, dry, intact, no obvious rash. HENT: NCAT, EOMI/PERRL, not icteric. External ears normal. No rhinorrhea. Moist mucous membranes Cardiovascular: Regular rate and rhythm, no murmur, +S1/S2. Respiratory: Lungs CTAB GI: Soft, nontender, non-distended. No guarding or rebound tenderness. : Erythematous genital region. No suprapubic tenderness. No flank tenderness bilaterally. Extremities: no edema, no cyanosis, no clubbing. Extremity pulses present Neuro: Grossly nonfocal. Moving all 4 extremities. CN not formally tested but appear grossly intact. Psychiatric: Cooperative, appropriate affect. Objective Labs 05/25/25 06:02 05/25/25 06:02 Labs: Laboratory Results - last 24 hr 05/24/25 05/24/25 05/24/25 19:25 20:26 22:33 WBC 6.4 RBC 4.84 Hgb 15.0 Hct 43.3 MCV 90 MCH 31.0 MCHC 34.6 RDW Std Deviation 41.3 Plt Count 202 Neut % (Auto) 47 Lymph % (Auto) 36 [place] % (Auto) 12 Eos % (Auto) 4 Baso % (Auto) 1 Neut # (Auto) 3.0 Lymph # (Auto) 2.3 [place] # (Auto) 0.8 Eos # (Auto) 0.2 Baso # (Auto) 0.1 Immature Gran # (Auto) 0.01 H Absolute Nucleated RBC 0.00 Immature Gran % 0 Nucleated RBC % 0 PT 10.5 INR 1.0 APTT 29.0 Sodium 136 Potassium 3.7 Chloride 98 Carbon Dioxide 26.5 Anion Gap 12 BUN < 5 L Creatinine 0.8 Estim Creat Clear Calc 110.5 eGFR > 60 BUN/Creatinine Ratio 6 L Glucose [address] Glu mg/dL Hemoglobin A1c Calculated Osmolality 269 L Calcium 9.2 Corrected Calcium 9.2 Magnesium 2.1 Total Bilirubin 0.4 AST 69 H ALT 63 H Alkaline Phosphatase 99 Ammonia 32 Troponin I < 0.020 Total Protein 8.6 H Albumin 4.8 Globulin 3.8 H Albumin/Globulin Ratio 1.3 Triglycerides Cholesterol LDL Cholesterol, Calc HDL Cholesterol Cholesterol/HDL Ratio Vitamin B12 645 Folate TSH 1.88 Ur Collection Type Clean Catch Urine Color Colorless A Urine Clarity Clear Urine pH 6.5 Ur Specific [place] 1.010 Urine Protein Negative Urine Glucose (UA) Negative Urine Ketones Negative Urine Blood Negative Urine Nitrite Negative Urine Bilirubin Negative Urine Urobilinogen (Auto) Negative Ur Leukocyte Esterase Negative Urine RBC 1 Urine WBC < 1 Ur Squamous Epith Cells 0 Urine Bacteria None Ur Culture Indicated? Not Indicated Urine Opiates Screen Negative Urine Fentanyl Screen Negative Ur Barbiturates Screen Negative U Amphetamin/Meth Scrn Negative U Benzodiazepines Scrn Negative U Cocaine Metab Screen Negative U Marijuana (THC) Screen Negative Ethyl Alcohol 247.2 H 05/25/25 06:02 WBC 6.8 RBC 4.78 Hgb 14.7 Hct 43.1 MCV 90 MCH 30.8 MCHC 34.1 RDW Std Deviation 42.2 Plt Count 180 Neut % (Auto) 70 Lymph % (Auto) 15 [place] % (Auto) 12 Eos % (Auto) 3 Baso % (Auto) 1 Neut # (Auto) 4.7 Lymph # (Auto) 1.0 [place] # (Auto) 0.8 Eos # (Auto) 0.2 Baso # (Auto) 0.1 Immature Gran # (Auto) 0.02 H Absolute Nucleated RBC 0.00 Immature Gran % 0 Nucleated RBC % 0 PT INR APTT Sodium 143 Potassium 4.3 D Chloride 103 Carbon Dioxide 26.4 Anion Gap 14 BUN < 5 L Creatinine 0.8 Estim Creat Clear Calc 110.5 eGFR > 60 BUN/Creatinine Ratio 6 L Glucose [address] Glu mg/dL 114 Hemoglobin A1c 5.6 Calculated Osmolality 282 Calcium 9.1 Corrected Calcium 9.1 Magnesium 1.8 Total Bilirubin 0.7 AST 83 H ALT 64 H Alkaline Phosphatase 95 Ammonia Troponin I Total Protein 8.0 Albumin 4.7 Globulin 3.3 Albumin/Globulin Ratio 1.4 Triglycerides 75 Cholesterol 192 LDL Cholesterol, Calc 74 HDL Cholesterol 103 H Cholesterol/HDL Ratio 1.9 L Vitamin B12 Folate > 24.00 TSH Ur Collection Type Urine Color Urine Clarity Urine pH Ur Specific [place] Urine Protein Urine Glucose (UA) Urine Ketones Urine Blood Urine Nitrite Urine Bilirubin Urine Urobilinogen (Auto) Ur Leukocyte Esterase Urine RBC Urine WBC Ur Squamous Epith Cells Urine Bacteria Ur Culture Indicated? Urine Opiates Screen Urine Fentanyl Screen Ur Barbiturates Screen U Amphetamin/Meth Scrn U Benzodiazepines Scrn U Cocaine Metab Screen U Marijuana (THC) Screen Ethyl Alcohol Quality Measures Quality Measures VTE prophylaxis Assessment & Plan Assessment Current Active Medications: Generic Name Dose Route Start Last Admin Trade Name Freq PRN Reason Stop Dose Admin Acetaminophen 650 mg 05/24/25 22:35 Acetaminophen 325 Mg Tablet PO 06/23/25 22:34 Q6H PRN Fever >100.4 Aspirin 81 mg 05/25/25 09:00 05/25/25 09:09 Aspirin Ec 81 Mg Tabec PO 06/24/25 08:59 81 mg DAILY KASHIF Administration Atorvastatin Calcium 40 mg 05/25/25 21:00 Atorvastatin Calcium 10 Mg Tablet PO 06/24/25 20:59 HS KASHIF Chlordiazepoxide HCl 25 mg 05/25/25 09:41 Chlordiazepoxide Hcl 25 Mg Capsule PO 05/30/25 09:40 Q8HR PRN AGITATION OR ANXIETY Clopidogrel Bisulfate 75 mg 05/25/25 09:00 05/25/25 09:09 Clopidogrel Bisulfate 75 Mg Tablet PO 06/24/25 08:59 75 mg DAILY KASHIF Administration Diazepam 5 mg 05/24/25 22:44 Diazepam Inj 5 Mg/Ml Vial 2 Ml IVP X1 PRN Breakthrough Agitation Folic Acid 1 mg 05/25/25 09:00 05/25/25 09:09 Folic Acid 1 Mg Tablet PO 06/24/25 08:59 1 mg QDAY KASHIF Administration Heparin Sodium (Porcine) 5,000 unit 05/25/25 06:00 05/25/25 05:05 Heparin Sod Inj 5000 Unit/Ml Vial SC 06/08/25 05:59 5,000 unit Q8HR KASHIF Administration Sodium Chloride 1,000 mls @ 75 mls/hr 05/24/25 22:45 05/24/25 23:20 Ns IV 06/23/25 22:44 75 mls/hr .[id number] KASHIF Administration Lorazepam 0.5 mg 05/24/25 22:44 Lorazepam 0.5 Mg Tablet PO 05/29/25 22:43 Q4HR PRN CIWA Score 2-6 Lorazepam 1 mg 05/24/25 22:44 05/25/25 09:14 Lorazepam 0.5 Mg Tablet PO 05/29/25 22:43 1 mg Q4HR PRN Administration CIWA SCORE 7-11 Lorazepam 2 mg 05/24/25 22:44 Lorazepam 0.5 Mg Tablet PO 05/29/25 22:43 Q4HR PRN CIWA SCORE 12-15 Ondansetron HCl 4 mg 05/24/25 22:35 Ondansetron Inj 2 Mg/Ml Inj 2 Ml IVP 06/23/25 22:34 Q6H PRN NAUSEA OR VOMITING Protocol Thiamine HCl 100 mg 05/25/25 09:00 05/25/25 09:09 Thiamine 100 Mg Tablet PO 06/24/25 08:59 100 mg QDAY KASHIF Administration Plan 50-year-old male past medical history of hemorrhagic CVA in 2019, hypertension, hyperlipidemia, brought in by his daughter to the ED in the evening of 05/24/2025 after a resolved episode of weakness in the right upper extremity. Stroke alert was called at 1913 on 05/24/2025. He was found to have no acute hemorrhage on head CT. He had no focal neurological deficits on exam. Teleneuro was consulted and did not recommend thrombolytic therapy because the neurological deficits were not debilitating. NIHSS was 1 per teleneuro. Patient was admitted for stroke rule out. #Acute right upper extremity weakness secondary to #CVA versus #TIA versus #Alcohol intoxication versus #Seizure? * Patient presented with a 20-minute episode of what he described as right upper extremity weakness and loss of collar setter overlock strength that began 1 hour before presentation * Head CT negative for acute hemorrhage. Small old infarct right basal ganglia. Head neck CTA showed no significant neck arterial stenosis, no cerebral large vessel arterial occlusion or thrombus. * Upon arrival his NIHSS score was 1 per telemetry neuro, who did not recommend thrombolytic therapy due to non-debilitating neurological deficits * The fact that the patient had complete moravian of his right upper extremity weakness upon presentation to the ED may reinforce TIA etiology * Patient mentioned that he drank 18 beers prior to presentation, consider alcoholic intoxication * Seizure may also be a differential though less likely, patient has no history of seizures * Hepatic encephalopathy was also considered, however this hypothesis was weakened by a normal ammonia level. A 16.2 cm fatty infiltrated liver was demonstrated on ultrasound. T. bili was 0.4. Given this data, other differentials have stronger arguments. * MRI showed no acute infarct; positive for old infarct * A1c 5.6; Lipid panel unremarkable * Patient denies history of seizures, hospitalization for withdrawals. Plan: * Aspirin 81 mg p.o. daily * Plavix 75 mg p.o. daily * Atorvastatin 40 mg p.o. at bedtime * Neuro Checks Q4 hours * Bedside Swallow Eval * Head of Bed 30 Degrees * DVT prophylaxis-heparin 5000 units subcu every 8 hours * Permissive hypertension * Echo showed pfo, elian ordered * Physical therapy ordered * Folate 1 mg daily * Thiamine 100 mg daily * Neurology consulted * Librium kashif 25 mg q8hr * CIWA protocol: * Lorazepam 0.5 mg p.o. for CIWA 2-6 * Lorazepam 1 mg p.o. for CIWA 7-11 * Lorazepam 2 mg p.o. for CIWA 12-15 * Diazepam 5 mg IV push as needed for breakthrough agitation #History of previous hemorrhagic CVA * Patient described similar feelings on presentation when he had a hemorrhagic CVA in 2019. He underwent an extensive course of rehabilitation. 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 Therefore, he never had the procedure. * It is not known if the patient has any residual deficits due to this hemorrhagic CVA event in 2019 Plan: * No direct intervention at this time * Treating acute focal neurological deficit as above #Hypertensive urgency #Hypertension Stage II * Patient presented with BP 199/126 * No evidence of endorgan damage: Creatinine, troponin within normal limits * BP improved to 145/97 on admission Plan: * Allowing for permissive hypertension at this time in the presence of acute focal neurological deficit * Will restart lisinopril 10 mg daily after 24 hours #Hyperlipidemia * Per chart review history * Patient taking atorvastatin 20 mg Plan: * Atorvastatin 40 mg nightly Hospital Maintenance: DVT ppx: Heparin 5000 units SQ every 8 hours Diet: Regular pending swallow screen IV lines: Peripheral IVs Code status: Full code Dispo: Telemetry monitoring floor, MRI of the brain ordered, neurochecks Q4, CIWA protocol in place. Patient plan of care was discussed with the attending physician, Dr. Warner & senior resident Dr. Lb Rockwell MD PGY-1 Attending Provider Attestation/Addendum I, Danielle Warner, , attest that I was physically present for the montiel portions of the service and evaluated the patient with the resident and I reviewed and discussed the case with the resident and agree with the resident's findings and plans of care as documented above Patient seen and eval this a.m. He reports some numbness and heaviness in his right wrist. Patient states that he had a beer yesterday after which he sat down in his car and had passed out. Patient woke up with heaviness and numbness in his right upper extremity. Patient has a history of CVA during which he was unable to lift his right upper extremity or right lower extremity. Due to the previous experience, patient was concern for recurrent CVA movements subsequently brought to the ED. Patient does have a history of chronic alcohol use and drinks [address] head was done in the ED showing no acute intracranial findings. MRI was done this morning showing no acute infarcts, only old infarcts. Patient continues to have mild weakness in his right upper extremity and endorses heaviness in his right hand. However, gross sensation is equal bilaterally. Patient has poor coordination noted on [id number] test, and is very tremulous which may be secondary to his acute alcohol withdrawal. Patient endorses having headache, but denies any auditory, tactile, visual hallucinations otherwise. He denies any nausea or vomiting. Patient slightly anxious. Will start on Librium 25 mg every 8 hours and continue with CIWA protocol to monitor for alcohol withdrawals. Will follow-up with neurology recommendations. Suspect the patient may have a radial nerve palsy versus recrudesnce of old cva. Echocardiogram with noted to have positive bubble study, will consult cardio for concern of PFO.
[2025-05-25] MEDS: Hydrocortisone Cr 1% 30 GM TUBE TOP (10:25)
--- NOTE | 2025-05-25 10:42 | PCS.ST ---
Pt taking regular diet. Interview completed. No dysphagia. Speech fluent. No formal ST services are warranted at this time.
--- NOTE | 2025-05-25 12:24 | PD.RESCONSUL ---
HPI Data of Consult Patient: new to practice Consult date: 05/25/25 Requesting Physician: Vicente Green MD Admitting Provider: Vicente Green MD Attending Provider: Vicente Green MD Primary Care Provider: Mich Rene MD Consult Narrative History of present illness: Mr. Jose is a 50-year-old male with past medical history of hemorrhagic CVA in 2019, hypertension and hyperlipidemia presented to [facility] emergency department on May 24, 2025 with a chief complaint of episode of weakness in the right upper extremity. Stroke alert was initiated in the ER and patient admitted for further stroke workup. Patient underwent echocardiogram with bubble study today, TTE today showed positive bubble study. And cardiology was consulted for JULIÁN. Patient seen at bedside, no neurological deficits noted. Denies any chest pain, shortness of breath, palpitations, syncope, dizziness, headache, nausea, vomiting and leg swelling. Patient reported that he had sudden numbness in his right arm as well as weakness of the distal hand for an hour prior to arrival in the emergency department, had similar symptoms in 2019 when he was diagnosed with this for stroke. Patient reports that he has family history of bleeding gums, denies any blood in vomit/blood in stool, difficulty swallowing or reactions to anesthesia in the past. EKG in ED showed sinus rhythm, rate 82, T wave inversion noted in lead V1, no acute ST-T changes, QTc 441. Echocardiogram today shows bubble study positive for PFO, normal left ventricle size and function, EF 60-65%, grade 1 diastolic dysfunction, normal right ventricle size and function, RVSP 23. Mild TR noted. Labs today show WBC 6.8, hemoglobin 14.7, platelet 180. INR 1.0, PT 10.5 APTT 29.0, sodium 143, potassium 4.3, chloride 103, bicarb 26.4, BUN less than 5, creatinine 0.8, GFR greater than 60, glucose 93, A1c 5.6, magnesium 1.8, calcium 9.1, AST 83, ALT 64, ammonia 32, troponin negative, triglyceride 75, cholesterol 192, LDL 74, HDL 103, B12 645, folate greater than 24, TSH 1.88 Toxicology reviewed, negative drug screen, blood alcohol level positive 247.2 Cardiology consulted for transesophageal echocardiogram as bubble study was positive on TTE. cc:: cc: Vicente Green MD Review of Systems Review of Systems Systems Reviewed: All systems reviewed, normal except as documented Past Medical History Past Medical History Comments PMH COMMENT: History: Past medical history: As above in HPI Surgical history: Previous hernia repair Social history: Drinks 2-6 beers daily since 2021. Denies tobacco or illicit drug use Allergies: No known drug allergies. Home Medications: Atorvastatin 20 mg daily Vitamin D3 supplement Lisinopril 10 mg daily Exam Vital Signs Temp Pulse Resp BP Pulse Ox O2 Del Method 97.2 F 110 H 14 164/94 H 97 Room Air 05/25/25 12:00 05/25/25 12:00 05/25/25 12:00 05/25/25 12:00 05/25/25 12:05/25/25 12:00 Narrative Exam General: No acute distress; A&Ox3, tremor Skin: Warm, dry, intact, no obvious rash. HENT: NCAT, EOMI/PERRL, not icteric. External ears normal. No rhinorrhea. Moist mucous membranes Cardiovascular: Regular rate and rhythm, no murmur, +S1/S2. Respiratory: Lungs CTAB GI: Soft, nontender, non-distended. No guarding or rebound tenderness. : Erythematous genital region. No suprapubic tenderness. No flank tenderness bilaterally. Extremities: no edema, no cyanosis, no clubbing. Extremity pulses present Neuro: Grossly nonfocal. Moving all 4 extremities. CN not formally tested but appear grossly intact. Psychiatric: Cooperative, appropriate affect. Results Labs 05/25/25 06:02 05/25/25 06:02 Labs: Short CBC 05/24/25 05/25/25 Range/Units 19:25 06:02 WBC 6.4 6.8 (3.8-10.6) Thou/mm3 Hgb 15.0 14.7 (13.5-16.0) g/dL Hct 43.3 43.1 (41.0-53.0) % Plt Count 202 180 (140-440) Thou/mm3 BMP 05/24/25 05/25/25 19:25 06:02 Sodium 136 143 Potassium 3.7 4.3 D Chloride 98 103 Carbon Dioxide 26.5 26.4 BUN < 5 L < 5 L Creatinine 0.8 0.8 Glucose 102 93 Calcium 9.2 9.1 Cardiac Enzymes 05/24/25 Range/Units 19:25 Troponin I < 0.020 (0.0-0.045) ng/mL Liver Function 05/24/25 05/25/25 Range/Units 19:25 06:02 Total Bilirubin 0.4 0.7 (0.3-1.2) mg/dL AST 69 H 83 H (0-34) U/L ALT 63 H 64 H (10-49) U/L Alkaline Phosphatase 99 95 (46-116) U/L Albumin 4.8 4.7 (3.5-5.0) gm/dL Urine 05/24/25 Range/Units 20:26 Urine Color Colorless A (Lt Yel-Yel) Urine Clarity Clear (Clear/Hazy) Urine pH 6.5 (5.0-7.0) Ur Specific [place] 1.010 (1.001-1.035) Urine Protein Negative (Neg - Trace) Urine Glucose (UA) Negative (Negative) Quality Measures Quality Measures stroke Suspected type of Stroke: TIA Last known well (date): 05/24/25 Last known well (time): 18:30 Tenecteplase given: Reason(s) Tenecteplase not given: Stroke severity too mild (non-disabling) (symptoms improving) not given Rehab services: PT evaluation ordered and Speech Language Pathology eval ordered VTE Prophylaxis: not indicated Antithrombotic by day 2:: refused Statin ordered: not ordered Anticoagulation ordered for A-fib or flutter (current or hx): not indicated Medications Home Medications and Allergies Home Medications ?Medication ?Instructions ?Recorded ?Confirmed ?Type lisinopril 10 mg tablet 10 mg PO QDAY 03/04/25 05/25/25 History ketoconazole 2 % topical cream 1 applic topical BID 05/25/25 05/25/25 History Allergies Allergy/AdvReac Type Severity Reaction Status Date / Time bee venom protein (honey bee) Allergy Severe Anaphylaxis Verified 05/24/25 19:14 Visit Medications Acetaminophen (Acetaminophen 325 Mg Tablet) 650 mg PO Q6H PRN PRN Reason: Fever >100.4 Stop: 06/23/25 22:34 Aspirin (Aspirin Ec 81 Mg Tabec) 81 mg PO DAILY [facility] Stop: 06/24/25 08:59 Last Admin: 05/25/25 09:09 Dose: 81 mg Atorvastatin Calcium (Atorvastatin Calcium 10 Mg Tablet) 40 mg PO HS [facility] Stop: 06/24/25 20:59 Chlordiazepoxide HCl (Chlordiazepoxide Hcl 25 Mg Capsule) 25 mg PO Q8HR PRN PRN Reason: AGITATION OR ANXIETY Stop: 05/30/25 09:40 Clopidogrel Bisulfate (Clopidogrel Bisulfate 75 Mg Tablet) 75 mg PO DAILY [facility] Stop: 06/24/25 08:59 Last Admin: 05/25/25 09:09 Dose: 75 mg Diazepam (Diazepam Inj 5 Mg/Ml Vial 2 Ml) 5 mg IVP X1 PRN PRN Reason: Breakthrough Agitation Folic Acid (Folic Acid 1 Mg Tablet) 1 mg PO QDAY [facility] Stop: 06/24/25 08:59 Last Admin: 05/25/25 09:09 Dose: 1 mg Heparin Sodium (Porcine) (Heparin Sod Inj 5000 Unit/Ml Vial) 5,000 unit SC Q8HR [facility] Stop: 06/08/25 05:59 Last Admin: 05/25/25 05:05 Dose: 5,000 unit Sodium Chloride (Ns) 1,000 mls @ 75 mls/hr IV .[id number] [facility] Stop: 06/23/25 22:44 Last Admin: 05/24/25 23:20 Dose: 75 mls/hr Lorazepam (Lorazepam 0.5 Mg Tablet) 0.5 mg PO Q4HR PRN PRN Reason: CIWA Score 2-6 Stop: 05/29/25 22:43 Lorazepam (Lorazepam 0.5 Mg Tablet) 1 mg PO Q4HR PRN PRN Reason: CIWA SCORE 7-11 Stop: 05/29/25 22:43 Last Admin: 05/25/25 09:14 Dose: 1 mg Lorazepam (Lorazepam 0.5 Mg Tablet) 2 mg PO Q4HR PRN PRN Reason: CIWA SCORE 12-15 Stop: 05/29/25 22:43 Ondansetron HCl (Ondansetron Inj 2 Mg/Ml Inj 2 Ml) 4 mg IVP Q6H PRN; Protocol PRN Reason: NAUSEA OR VOMITING Stop: 06/23/25 22:34 Thiamine HCl (Thiamine 100 Mg Tablet) 100 mg PO QDAY [facility] Stop: 06/24/25 08:59 Last Admin: 05/25/25 09:09 Dose: 100 mg Discontinued Medications Aspirin (Aspirin Ec 81 Mg Tabec) 81 mg PO X1 ONE Stop: 05/24/25 20:15 Last Admin: 05/24/25 20:20 Dose: 81 mg Atorvastatin Calcium (Atorvastatin Calcium 10 Mg Tablet) 20 mg PO HS [facility] Stop: 06/24/25 20:59 Clopidogrel Bisulfate (Clopidogrel Bisulfate 75 Mg Tablet) 75 mg PO X1 ONE Stop: 05/24/25 20:15 Last Admin: 05/24/25 20:20 Dose: 75 mg Folic Acid (Folic Acid Inj 1 Mg/0.2 Ml) 1 mg IVP X1 ONE Stop: 05/24/25 22:47 Last Admin: 05/24/25 23:21 Dose: 1 mg Hydrocortisone (Hydrocortisone Cr 1% 30 Gm Tube) 0 gm TOP X1 ONE Stop: 05/25/25 09:26 Last Admin: 05/25/25 10:25 Dose: 1 applicatio Thiamine HCl 100 mg/ Sodium (Chloride) 101 mls @ 202 mls/hr IV X1 ONE Stop: 05/24/25 23:16 Last Infusion: 05/24/25 23:54 Dose: Infused Assessment & Plan Plan Assessment and plan: Summary: Mr. Jose is a 50-year-old male with past medical history of hemorrhagic CVA in 2019, hypertension and hyperlipidemia presented to [facility] emergency department on May 24, 2025 with a chief complaint of episode of weakness in the right upper extremity. Stroke alert was initiated in the ER and patient admitted for further stroke workup. Patient underwent echocardiogram with bubble study today, TTE today showed positive bubble study. And cardiology was consulted for JULIÁN. #Positive PFO bubble study on TTE 50-year-old male with history of hemorrhagic CVA in 2019, hypertension and hyperlipidemia presented with extremity weakness, symptoms resolved on presentation. Patient reported that he had sudden numbness in his right arm as well as weakness of the distal hand for an hour prior to arrival in the emergency department, had similar symptoms in 2019 when he was diagnosed with this for stroke. Patient reports that he has family history of bleeding gums, denies any blood in vomit/blood in stool, difficulty swallowing or reactions to anesthesia in the past. EKG in ED showed sinus rhythm, rate 82, T wave inversion noted in lead V1, no acute ST-T changes, QTc 441. MRI reviewed today, negative for acute infarct. Transthoracic Echocardiogram: 1. Bubble study positive for PFO. Recommend JULIÁN for further evaluation. 2. Left ventricle size is normal and systolic function is normal. Estimated ejection fraction is 60-65%. There is grade I diastolic dysfunction. 3. Right ventricle chamber size is normal and systolic function is normal. Estimated RVSP is 23 mmHg. 4. There is mild tricuspid valve regurgitation. 5. Normal IVC with estimated RA pressure 3 mmHg. Triglyceride 75, cholesterol 192, LDL 74, HDL 103, TSH 1.88, A1c 5.6 Toxicology reviewed, negative drug screen, blood alcohol level positive 247.2 Patient denies any kind of swallowing problems or any kind of esophageal interventions or previous surgeries. Patient denies any kind of gastric ulcers bleeding and any other hematemesis or hematochezia. Patient denies any issues with anesthesia previously. Patient explained all the risks, benefits and alternatives of JULIÁN including the risk of perforation, bleeding, respiratory failure secondary to sedation, injury to teeth gums esophagus and stomach. Patient understands all risks and benefits and provided consent for the procedure. We will keep him n.p.o. overnight and plan for JULIÁN in the morning. - Will schedule for JULIÁN in the morning #Hypertension Blood pressure on presentation elevated 199/126, does have history of significant alcohol use possible a competent of alcohol withdrawal. Currently on [facility] protocol, takes lisinopril 10 mg at home -Resume home dose lisinopril, treat alcohol withdrawal. #Hyperlipidemia Triglyceride 75, cholesterol 192, LDL 74, HDL 103 Continue atorvastatin #CVA workup #Alcohol dependence with withdrawal #History of previous hemorrhagic CVA -Management as per primrary team Thank you for the consult and allowing to participate in the care of the patient. Cardiology will continue to follow. Case discussed with Attending Physician Dr. Kuldeep Figueroa MD Internal Medicine PGY-2 Disclaimer: This note was dictated by speech recognition. Minor errors in brazing machine operator may be present due to voice recognition software. Attending Provider Attestation/Addendum I have personally seen and examined the patient separately on the above date of service and discussed the plan of care with the resident. I reviewed the resident Dr. Usama Figueroa consultation progress note and agree with the resident findings and plan in the note above and have also edited the documentation to reflect my findings and plan. Kuldeep Ventura M.D. Interventional Cardiology
--- NOTE | 2025-05-25 14:59 | PC.PT ---
PT eval only. Patient is safe to ambulate to the bathroom and in the halls with 1 staff due to his CIWA protocol. RN made aware.
--- NOTE | 2025-05-25 15:50 | PC.NURSE ---
Dr. Rockwell aware of pt. BP 164/94 and 156/101. Per Dr. Rockwell we are still doing permissive hypertension for now. SBP 150s and 160s are okay. no new orders received at this time.
--- NOTE | 2025-05-25 17:16 | PC.NURSE ---
Pt. family at bedside so pt. requests bed alarm turned off. Pt. and family educated to call when pt. ready to rest so bed alarm can be put back on.
--- NOTE | 2025-05-25 17:43 | PD.RESCONSUL ---
[facility] Data of Consult Requesting Physician: Vicente Green MD Admitting Provider: Vicente Green MD Attending Provider: Vicente Green MD Primary Care Provider: Mich Rene MD Consult Narrative Reason for consult: Stroke rule out History of present illness: Patient is a 50-year-old male with past medical history of hemorrhagic CVA in 2019, hypertension, hyperlipidemia, brought in by his daughter to the ED in the evening of 05/24/2025 after a resolved episode of weakness in the right upper extremity. Stroke alert was called at 1913 on 05/24/2025. Patient presented within 1 hour of last known well. The patient reports he drank 6 beers then got into his car and sat down, after which he passed out. He denies any prodrome or feeling of dizziness, palpitations, or chest pain. Questions were asked specifically about the positioning the patient was in or if he was leaning against anything but the patient reported no he was only seated with his arm down. 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 This lasted for about 20 minutes but improved by the time he arrived to the ED. He described a similar feeling when he had his hemorrhagic stroke back in 2019. He denied feeling dizzy, nausea or vomiting, or diarrhea. He was found to have no acute hemorrhage on head CT. There is a chronic small old infarct in the right basal ganglia. He had no focal neurological deficits on exam. Labs were mostly unremarkable minus mild AST ALT elevation. Teleneuro was consulted and did not recommend thrombolytic therapy because the neurological deficits were not debilitating. NIHSS was 1 per teleneuro. Patient was admitted for stroke rule out and neurology was consulted for further management. cc:: cc: Vicente Green MD Past Medical History Past Medical History Comments PMH COMMENT: History: Past medical history: As above in HPI Surgical history: Previous hernia repair Social history: Drinks 2-6 beers daily since 2021. Denies tobacco or illicit drug use Allergies: No known drug allergies. Home Medications: Atorvastatin 20 mg daily Vitamin D3 supplement Lisinopril 10 mg daily Exam Vital Signs Temp Pulse Resp BP Pulse Ox O2 Del Method 97.2 F 99 18 154/101 H 97 Room Air 05/25/25 16:00 05/25/25 16:00 05/25/25 16:00 05/25/25 16:00 05/25/25 16:00 05/25/25 16:00 Narrative Exam Physical Exam General: Awake and in no acute distress. Conversational and non-toxic appearing. HEENT: Normocephalic, atraumatic, mucous membranes moist. Heart: Regular rate and rhythm, normal S1 and S2, no murmurs. Lungs: Clear to auscultation with no wheezing or crackles. Abdomen: Soft, nondistended, nontender, positive bowel sounds. ?No guarding or rebound tenderness. Neuro Stroke Exam: -Alert and oriented x3. -CN II-XII intact. -Normal visual hernadez. -Normal fluent speech. -No facial droop. -Strength 5/5 bilateral arms, 5/5 plastic products sales representative strength. -Strength 5/5 bilateral lower extremities. -Mild numbness reported over palm of right hand. Mild residual numbness (old) left hand). -Normal [id number], normal [id number]-[id number] testing. Extremities: No edema. Skin: No rash or ecchymoses. Results Labs 05/26/25 05:27 05/26/25 05:27 Labs: Short CBC 05/24/25 05/25/25 Range/Units 19:25 06:02 WBC 6.4 6.8 (3.8-10.6) Thou/mm3 Hgb 15.0 14.7 (13.5-16.0) g/dL Hct 43.3 43.1 (41.0-53.0) % Plt Count 202 180 (140-440) Thou/mm3 BMP 05/24/25 05/25/25 19:25 06:02 Sodium 136 143 Potassium 3.7 4.3 D Chloride 98 103 Carbon Dioxide 26.5 26.4 BUN < 5 L < 5 L Creatinine 0.8 0.8 Glucose 102 93 Calcium 9.2 9.1 Cardiac Enzymes 05/24/25 Range/Units 19:25 Troponin I < 0.020 (0.0-0.045) ng/mL Liver Function 05/24/25 05/25/25 Range/Units 19:25 06:02 Total Bilirubin 0.4 0.7 (0.3-1.2) mg/dL AST 69 H 83 H (0-34) U/L ALT 63 H 64 H (10-49) U/L Alkaline Phosphatase 99 95 (46-116) U/L Albumin 4.8 4.7 (3.5-5.0) gm/dL Urine 05/24/25 Range/Units 20:26 Urine Color Colorless A (Lt Yel-Yel) Urine Clarity Clear (Clear/Hazy) Urine pH 6.5 (5.0-7.0) Ur Specific [place] 1.010 (1.001-1.035) Urine Protein Negative (Neg - Trace) Urine Glucose (UA) Negative (Negative) Quality Measures Quality Measures VTE prophylaxis Medications Home Medications and Allergies Home Medications ?Medication ?Instructions ?Recorded ?Confirmed ?Type lisinopril 10 mg tablet 10 mg PO QDAY 03/04/25 05/25/25 History ketoconazole 2 % topical cream 1 applic topical BID 05/25/25 05/25/25 History Allergies Allergy/AdvReac Type Severity Reaction Status Date / Time bee venom protein (honey bee) Allergy Severe Anaphylaxis Verified 05/24/25 19:14 Visit Medications Acetaminophen (Acetaminophen 325 Mg Tablet) 650 mg PO Q6H PRN PRN Reason: Fever >100.4 Stop: 06/23/25 22:34 Aspirin (Aspirin Ec 81 Mg Tabec) 81 mg PO DAILY [facility] Stop: 06/24/25 08:59 Last Admin: 05/25/25 09:09 Dose: 81 mg Atorvastatin Calcium (Atorvastatin Calcium 10 Mg Tablet) 40 mg PO HS [facility] Stop: 06/24/25 20:59 Chlordiazepoxide HCl (Chlordiazepoxide Hcl 25 Mg Capsule) 25 mg PO Q8HR PRN PRN Reason: AGITATION OR ANXIETY Stop: 05/30/25 09:40 Clopidogrel Bisulfate (Clopidogrel Bisulfate 75 Mg Tablet) 75 mg PO DAILY [facility] Stop: 06/24/25 08:59 Last Admin: 05/25/25 09:09 Dose: 75 mg Diazepam (Diazepam Inj 5 Mg/Ml Vial 2 Ml) 5 mg IVP X1 PRN PRN Reason: Breakthrough Agitation Folic Acid (Folic Acid 1 Mg Tablet) 1 mg PO QDAY [facility] Stop: 06/24/25 08:59 Last Admin: 05/25/25 09:09 Dose: 1 mg Heparin Sodium (Porcine) (Heparin Sod Inj 5000 Unit/Ml Vial) 5,000 unit SC Q8HR [facility] Stop: 06/08/25 05:59 Last Admin: 05/25/25 13:05 Dose: 5,000 unit Lorazepam (Lorazepam 0.5 Mg Tablet) 0.5 mg PO Q4HR PRN PRN Reason: CIWA Score 2-6 Stop: 05/29/25 22:43 Last Admin: 05/25/25 17:08 Dose: 0.5 mg Lorazepam (Lorazepam 0.5 Mg Tablet) 1 mg PO Q4HR PRN PRN Reason: CIWA SCORE 7-11 Stop: 05/29/25 22:43 Last Admin: 05/25/25 09:14 Dose: 1 mg Lorazepam (Lorazepam 0.5 Mg Tablet) 2 mg PO Q4HR PRN PRN Reason: CIWA SCORE 12-15 Stop: 05/29/25 22:43 Ondansetron HCl (Ondansetron Inj 2 Mg/Ml Inj 2 Ml) 4 mg IVP Q6H PRN; Protocol PRN Reason: NAUSEA OR VOMITING Stop: 06/23/25 22:34 Thiamine HCl (Thiamine 100 Mg Tablet) 100 mg PO QDAY [facility] Stop: 06/24/25 08:59 Last Admin: 05/25/25 09:09 Dose: 100 mg Discontinued Medications Aspirin (Aspirin Ec 81 Mg Tabec) 81 mg PO X1 ONE Stop: 05/24/25 20:15 Last Admin: 05/24/25 20:20 Dose: 81 mg Atorvastatin Calcium (Atorvastatin Calcium 10 Mg Tablet) 20 mg PO HS [facility] Stop: 06/24/25 20:59 Clopidogrel Bisulfate (Clopidogrel Bisulfate 75 Mg Tablet) 75 mg PO X1 ONE Stop: 05/24/25 20:15 Last Admin: 05/24/25 20:20 Dose: 75 mg Folic Acid (Folic Acid Inj 1 Mg/0.2 Ml) 1 mg IVP X1 ONE Stop: 05/24/25 22:47 Last Admin: 05/24/25 23:21 Dose: 1 mg Hydrocortisone (Hydrocortisone Cr 1% 30 Gm Tube) 0 gm TOP X1 ONE Stop: 05/25/25 09:26 Last Admin: 05/25/25 10:25 Dose: 1 applicatio Sodium Chloride (Ns) 1,000 mls @ 75 mls/hr IV .[id number] [facility] Stop: 06/23/25 22:44 Last Admin: 05/25/25 16:36 Dose: Not Given Thiamine HCl 100 mg/ Sodium (Chloride) 101 mls @ 202 mls/hr IV X1 ONE Stop: 05/24/25 23:16 Last Infusion: 05/24/25 23:54 Dose: Infused Assessment & Plan Plan 50-year-old male past medical history of hemorrhagic CVA in 2019, hypertension, hyperlipidemia, brought in by his daughter to the ED in the evening of 05/24/2025 after a resolved episode of weakness in the right upper extremity admitted for stroke rule out and neuro consulted. #Right upper extremity paresthesias #Peripheral neuropathy vs. radial nerve palsy vs. TIA MRI showed old infarct and no new stroke. Echo showed positive bubble study, 60-65% EF, and grade I diastolic dysfunction Patient's presentation is concerning for radial nerve palsy, however he does not report falling asleep with arm in an outstretched position. TIA is also a differential. -Continue aspirin and Plavix for now -Proceeding with JULIÁN due to positive bubble study #History of hypertension #History of hyperlipidemia Patient was discussed with the Neurology attending, Dr. Perez. Thank you for allowing us to participate in the care of this patient. Evelyn Sheets, PGY-3 Attending Provider Attestation/Addendum I personally have seen and examined the patient at the bedside and I agreed with the resident's findings assessment and plan of care. Patient is slowly improving in his right hand paresthesias. Follow-up with transesophageal echocardiogram tomorrow.
[2025-05-25] MEDS: ATORVASTATIN CALCIUM 10 MG TABLET 40 MG PO (21:08)
[2025-05-26] VITALS (17 sets, daily range): BP systolic 131–174; BP diastolic 89–114; PULSE 75–95; RESP 12–20; TEMP 36.1–36.8; O2SAT 90–98
[2025-05-26] MEDS: HEPARIN SOD INJ 5000 UNIT/ML VIAL SC ×2 (05:45→14:05)
[2025-05-26 06:00] LABS: Basophils # (Auto) 0.0 Thou/mm3 (0.0-0.2); Basophils % (Auto) 1 % (0-2.5); Eosinophils # (Auto) 0.2 Thou/mm3 (0.0-0.5); Eosinophils % (Auto) 5 % (0-10); Hematocrit 42.4 % (41.0-53.0); Hemoglobin 14.3 g/dL (13.5-16.0); Immature Granulocytes Auto 0.01 Thou/mm3 (0.00-0.00); Lymphocytes # (Auto) 1.0 Thou/mm3 (1.0-4.8); Lymphocytes % (Auto) 19 % (10-50); Mean Corpuscular HGB Conc 33.7 g/dl (31.0-37.0); Mean Corpuscular Hemoglobin 30.5 pg (25.0-35.0); Mean Corpuscular Volume 90 fL (80-100); Monocytes # (Auto) 0.8 Thou/mm3 (0.0-0.8); Monocytes % (Auto) 16 % (0-12); Neutrophils # (Auto) 2.9 Thou/mm3 (1.8-7.7); Neutrophils % (Auto) 59 % (37-80); Nucleated Red Blood Cell # 0.00 Thou/mm3 (0.00-0.00); Nucleated Red Blood Cell % 0 /100 WBC (0); Platelet Count 168 Thou/mm3 (140-440); RDW Standard Deviation 40.8 fL (35.1-43.9); Red Blood Count 4.69 Miln/mm3 (4.50-5.90); White Blood Count 4.9 Thou/mm3 (3.8-10.6)
[2025-05-26 06:27] LABS: Alanine Aminotransferase 46 U/L (10-49); Albumin, Serum 4.5 gm/dL (3.5-5.0); Albumin/Globulin Ratio 1.4 (1.2-2.2); Alkaline Phosphatase 89 U/L (46-116); Anion Gap 13 (7-16); Aspartate Amino Transferase 51 U/L (0-34); BUN/Creatinine Ratio 10 Ratio (12-20); Bilirubin,Total 1.0 mg/dL (0.3-1.2); Blood Urea Nitrogen 8 mg/dL (9-23); Calcium 9.3 mg/dL (8.3-10.6); Calcium (Corrected) 9.3 mg/dL (8.5-10.1); Carbon Dioxide 26.5 mMol/L (20.0-31.0); Chloride 101 mMol/L (98-107); Creatinine (Component) 0.8 mg/dL (0.6-1.3); Estimated Creatinine Clearance 110.5 mL/min (>60); Globulin 3.2 gm/dL (2.3-3.5); Glucose 99 mg/dL (74-106); Magnesium 1.6 mg/dL (1.6-2.6); Osmolality,Calculated 277 (275-295); Phosphorous 3.2 mg/dL (2.4-5.1); Potassium 3.4 mMol/L (3.4-5.1); Sodium 140 mMol/L (136-145); Total Protein 7.7 gm/dL (5.7-8.2); eGFR > 60 See Note
--- NOTE | 2025-05-26 08:45 | ECHO_ITS ---
Patient Info Name: Jude Jose Age: 50 years : 1975 Gender: Male Ht: 175 cm Wt: 79 kg BSA: 1.98 m2 BP: 164 / 105 mmHg HR: 93 bpm Exam Date: 05/26/2025 11:34 AM Admit Date: 05/24/2025 Site: Room Number: Maturity Checker Patient Status: I Exam Type: CA echo transesophageal Geomagnetician: Dara Trinidad Ordering Physician: Kuldeep Ventura Study Info Indications positive bubble study - Contrast/Agitated Saline Contrast/Ag. Saline: Agitated Saline Amount: --- ml Primary Location: S2NX Summary 1. Normal LV size and function with an EF of 55 to 60%. 2. Normal RV size and function. Trace TR and PI. 3. Bubble study positive after 1 beat for small PFO with doppler color flow and agitated saline. No LA or STEVE thrombus. 4. No pericardial effusion. Report Signatures Finalized by Kuldeep Ventura on 06/03/2025 04:22 PM
--- NOTE | 2025-05-26 09:34 | ESPR_ITS ---
Documentation for date of: 05/26/25 Subjective Subjective Interval history: Patient seen and examined at bedside. No new cardiac complaints except bleeding from the gums which he says he has a familial history with all his family members having the same with brushing of teeth in the morning. Patient's MRI was negative for stroke, though patient does have history of stroke. Has old infarcts in basal ganglia and left parietal lobe. JULIÁN completed and patient does have PFO that was positive with bubble study with [id number] shunt. Patient will need further outpatient workup, risk stratification for the PFO to rule out other causes of stroke including occult atrial fibrillation with a Holter monitor, hypercoagulable workup and neurology follow-up for the same. Advised to abstain from alcohol. Recommend following up in clinic in 1 week. Exam Vital Signs Temp Pulse Resp BP Pulse Ox O2 Del Method 98.3 F 77 20 162/108 H 96 Room Air 05/26/25 08:15 05/26/25 08:30 05/26/25 08:30 05/26/25 08:30 05/26/25 08:30 05/26/25 08:30 Narrative Exam General: No acute distress; A&Ox3, tremor Skin: Warm, dry, intact, no obvious rash. HENT: NCAT, EOMI/PERRL, not icteric. External ears normal. No rhinorrhea. Moist mucous membranes Cardiovascular: Regular rate and rhythm, no murmur, +S1/S2. Respiratory: Lungs CTAB GI: Soft, nontender, non-distended. No guarding or rebound tenderness. : Erythematous genital region. No suprapubic tenderness. No flank tenderness bilaterally. Extremities: no edema, no cyanosis, no clubbing. Extremity pulses present Neuro: Grossly nonfocal. Moving all 4 extremities. CN not formally tested but appear grossly intact. Psychiatric: Cooperative, appropriate affect. Objective Labs 05/26/25 05:27 05/26/25 05:27 Labs: Laboratory Results - last 24 hr 05/26/25 05:27 WBC 4.9 RBC 4.69 Hgb 14.3 Hct 42.4 MCV 90 MCH 30.5 MCHC 33.7 RDW Std Deviation 40.8 Plt Count 168 Neut % (Auto) 59 Lymph % (Auto) 19 [place] % (Auto) 16 H Eos % (Auto) 5 Baso % (Auto) 1 Neut # (Auto) 2.9 Lymph # (Auto) 1.0 [place] # (Auto) 0.8 Eos # (Auto) 0.2 Baso # (Auto) 0.0 Immature Gran # (Auto) 0.01 H Absolute Nucleated RBC 0.00 Immature Gran % 0 Nucleated RBC % 0 Sodium 140 Potassium 3.4 D Chloride 101 Carbon Dioxide 26.5 Anion Gap 13 BUN 8 L Creatinine 0.8 Estim Creat Clear Calc 110.5 eGFR > 60 BUN/Creatinine Ratio 10 L Glucose 99 Calculated Osmolality 277 Calcium 9.3 Corrected Calcium 9.3 Phosphorus 3.2 Magnesium 1.6 Total Bilirubin 1.0 AST 51 H ALT 46 Alkaline Phosphatase 89 Total Protein 7.7 Albumin 4.5 Globulin 3.2 Albumin/Globulin Ratio 1.4 Quality Measures Quality Measures VTE prophylaxis Assessment & Plan Assessment Current Active Medications: Generic Name Dose Route Start Last Admin Trade Name Freq PRN Reason Stop Dose Admin Acetaminophen 650 mg 05/24/25 22:35 Acetaminophen 325 Mg Tablet PO 06/23/25 22:34 Q6H PRN Fever >100.4 Aspirin 81 mg 05/25/25 09:00 05/25/25 09:09 Aspirin Ec 81 Mg Tabec PO 06/24/25 08:59 81 mg DAILY SONG Administration Atorvastatin Calcium 40 mg 05/25/25 21:00 05/25/25 21:08 Atorvastatin Calcium 10 Mg Tablet PO 06/24/25 20:59 40 mg HS SONG Administration Chlordiazepoxide HCl 25 mg 05/25/25 22:00 05/26/25 05:45 Chlordiazepoxide Hcl 25 Mg Capsule PO 05/30/25 21:59 25 mg Q8HR SONG Administration Clopidogrel Bisulfate 75 mg 05/25/25 09:00 05/25/25 09:09 Clopidogrel Bisulfate 75 Mg Tablet PO 06/24/25 08:59 75 mg DAILY SONG Administration Diazepam 5 mg 05/24/25 22:44 Diazepam Inj 5 Mg/Ml Vial 2 Ml IVP X1 PRN Breakthrough Agitation Folic Acid 1 mg 05/25/25 09:00 05/25/25 09:09 Folic Acid 1 Mg Tablet PO 06/24/25 08:59 1 mg QDAY SONG Administration Heparin Sodium (Porcine) 5,000 unit 05/25/25 06:00 05/26/25 05:45 Heparin Sod Inj 5000 Unit/Ml Vial SC 06/08/25 05:59 5,000 unit Q8HR SONG Administration Magnesium Sulfate 4 gm in 50 mls @ 12.5 mls/hr 05/26/25 08:36 Magnesium Sulfate Ivpb IV 05/26/25 12:35 X1 ONE Lorazepam 0.5 mg 05/24/25 22:44 05/25/25 21:09 Lorazepam 0.5 Mg Tablet PO 05/29/25 22:43 0.5 mg Q4HR PRN Administration CIWA Score 2-6 Lorazepam 1 mg 05/24/25 22:44 05/25/25 09:14 Lorazepam 0.5 Mg Tablet PO 05/29/25 22:43 1 mg Q4HR PRN Administration CIWA SCORE 7-11 Lorazepam 2 mg 05/24/25 22:44 Lorazepam 0.5 Mg Tablet PO 05/29/25 22:43 Q4HR PRN CIWA SCORE 12-15 Ondansetron HCl 4 mg 05/24/25 22:35 Ondansetron Inj 2 Mg/Ml Inj 2 Ml IVP 06/23/25 22:34 Q6H PRN NAUSEA OR VOMITING Protocol Thiamine HCl 100 mg 05/25/25 09:00 05/25/25 09:09 Thiamine 100 Mg Tablet PO 06/24/25 08:59 100 mg QDAY SONG Administration Plan Assessment and plan: Summary: Mr. Jose is a 50-year-old male with past medical history of hemorrhagic CVA in 2019, hypertension and hyperlipidemia presented to [facility] emergency department on May 24, 2025 with a chief complaint of episode of weakness in the right upper extremity. Stroke alert was initiated in the ER and patient admitted for further stroke workup. Patient underwent echocardiogram with bubble study today, TTE today showed positive bubble study. And cardiology was consulted for JULIÁN. #Positive PFO bubble study 50-year-old male with history of hemorrhagic CVA in 2019, hypertension and hyperlipidemia presented with extremity weakness, symptoms resolved on presentation. Patient reported that he had sudden numbness in his right arm as well as weakness of the distal hand for an hour prior to arrival in the emergency department, had similar symptoms in 2019 when he was diagnosed with this for stroke. Patient reports that he has family history of bleeding gums, denies any blood in vomit/blood in stool, difficulty swallowing or reactions to anesthesia in the past. EKG in ED showed sinus rhythm, rate 82, T wave inversion noted in lead V1, no acute ST-T changes, QTc 441. MRI reviewed today, negative for acute infarct. Transthoracic Echocardiogram: 1. Bubble study positive for PFO. Recommend JULIÁN for further evaluation. 2. Left ventricle size is normal and systolic function is normal. Estimated ejection fraction is 60-65%. There is grade I diastolic dysfunction. 3. Right ventricle chamber size is normal and systolic function is normal. Estimated RVSP is 23 mmHg. 4. There is mild tricuspid valve regurgitation. 5. Normal IVC with estimated RA pressure 3 mmHg. Triglyceride 75, cholesterol 192, LDL 74, HDL 103, TSH 1.88, A1c 5.6 Toxicology reviewed, negative drug screen, blood alcohol level positive 247.2 No new cardiac complaints except bleeding from the gums which he says he has a familial history with all his family members having the same with brushing of teeth in the morning.Patient does have significant family history of bleeding gums. Patient underwent transesophageal echocardiogram successfully and patient does have PFO that was positive with bubble study with [id number] shunt. Patient's MRI was negative for acute infarct however patient does have history of stroke, Has old infarcts in basal ganglia and left parietal lobe per the MRI. Patient will need further outpatient workup, risk stratification for the PFO to rule out other causes of stroke including occult atrial fibrillation with a Holter monitor, hypercoagulable workup and neurology follow-up for the same. Advised to abstain from alcohol. Recommend following up in clinic in 1 week. #Hypertension Blood pressure on presentation elevated 199/126, does have history of significant alcohol use possible a competent of alcohol withdrawal. -Discharged on home dose lisinopril, titrate blood pressure medication outpatient #Hyperlipidemia Triglyceride 75, cholesterol 192, LDL 74, HDL 103 Discharged on atorvastatin 40 mg at bedtime #CVA workup #Alcohol dependence with withdrawal #History of previous hemorrhagic CVA -Management as per primrary team Thank you for the consult and allowing to participate in the care of the patient. Cardiology will continue to follow. Case discussed with Attending Physician Dr. Kuldeep Figueroa MD Internal Medicine PGY-2 Disclaimer: This note was dictated by speech recognition. Minor errors in trim machine adjuster may be present due to voice recognition software. Attending Provider Attestation/Addendum I have personally seen and examined the patient separately on the above date of service and discussed the plan of care with the resident. I reviewed the resident Dr. Usama Figueroa consultation progress note and agree with the resident findings and plan in the note above and have also edited the documentation to reflect my findings and plan. Kuldeep Ventura M.D. Interventional Cardiology
[2025-05-26] MEDS: Magnesium Sulfate 4 GM Ivpb 4 GM/50 ML BAG IV (09:43)
[2025-05-26] MEDS: CLOPIDOGREL BISULFATE 75 MG TABLET PO (09:43)
[2025-05-26] MEDS: ASPIRIN EC 81 MG TABEC PO (09:43)
[2025-05-26] MEDS: THIAMINE 100 MG TABLET PO (09:43)
[2025-05-26] MEDS: FOLIC ACID 1 MG TABLET PO (09:43)
--- NOTE | 2025-05-26 09:58 | PC.NURSE ---
DR DYSON NOTIFIED OF PATIENT STATING 09/16 PAIN/CHEST PRESSURE RADIATING TO HIS BACK THAT IS CONSTANT AT THIS TIME AND THAT PATIENT STATES HE GETS IT AT TIMES AT HOME BUT IT GOES AWAY BUT RIGHT NOW ITS CONSTANT. PER MD JUST CONTINUE TO MONITOR FOR NOW.
[2025-05-26] MEDS: BENZOCAINE 20% (Hurricaine) SPRAY 1 DOSE TOP (12:01)
[2025-05-26] MEDS: fentaNYL CIT INJ 50 mCg/ML AMP 2ML 125 MCG IVP (12:01)
[2025-05-26] MEDS: MIDAZOLAM INJ 1 MG/ML VIAL 2 ML 5.5 MG IVP (12:01)
--- NOTE | 2025-05-26 12:39 | ESDS_ITS ---
<Statement entered by Ervin Asher MD - 05/26/25 13:16> ----- Note reviewed and agree with care plan as documented. Please refer to the note below for further details. Plan discussed with attending physician Dr. Simone Asher MD PGY-2 Internal Medicine Planned Discharge Date 05/26/25 DS: Providers Provider Date of admission: 05/24/25 22:36 Primary care physician: Mich Rene MD Admitting Provider: Vicente Green MD Attending Provider on Admission: Vicente Green MD Consults: 05/24/25 19:18 Consult to Neurology / Tele-Neurology Stat Comment: Consulting Provider: [facility] 05/24/25 22:43 Referral Physical Therapy Routine Comment: Physician Instructions: 05/25/25 01:05 Consult to Neurology / Tele-Neurology Routine Comment: R/O CVA Consulting Provider: Kendall Perez 05/25/25 01:06 Referral Speech Therapy Routine Comment: 05/25/25 12:23 Consult to Cardiology Routine Comment: Consulting Provider: Kuldeep Ventura Attending Provider on DC: Yaw Nichols MD Discharging Provider: Yaw Nichols MD DS: Diagnosis Problem List Completed Was Problem List Reviewed/Reconciled?: Yes Hospital Course Hospital Course Hospital course: 50-year-old male past medical history of hemorrhagic CVA in 2019, hypertension, hyperlipidemia, brought in by his daughter to the ED at [facility] on 05/24/2025 after a resolved episode of weakness in the right upper extremity. Stroke alert was called at 1913 on 05/24/2025. Patient presented within 1 hour of last known well. Tele-neuro assessed the patient and found him to have NIHSS score of 1 and did not recommend thrombolytic therapy because the neuro deficits were not debilitating. The hospital floor team assessed and found him to have NIHSS score of 0. He was found to have no acute hemorrhage on head CT. There is a chronic small old infarct in the right basal ganglia. He had no focal neurological deficits on exam. Patient had an TTE done which showed a PFO. Patient then had JULIÁN done 05/26, day of discharge. Patient was placed on CIWA protocol throughout hospitalization with CIWA scores that were relatively low and then to near zero before discharge. Patient was clinically stable on discharge, will need to follow up with cardiology outpatient. Discharge Instructions - We are prescribing you aspirin 81 mg for cardiovascular protection, please take 1 by mouth per day - Follow with PCP regarding getting started on alcohol rehab and further counseling/management - Follow up with cardiology within 1 week for JULIÁN results ? Continue taking all other home medications as prescribed ? Follow-up with PCP within 1-2 weeks of discharge ? If you do not have a PCP, you can follow-up at the [facility] (you can call [phone] to make an appointment) ? Return to ED if symptoms worsen or recur #Acute right upper extremity weakness secondary to #CVA versus #TIA versus #Alcohol intoxication versus #Seizure? #History of previous hemorrhagic CVA #Hypertensive urgency #Hypertension Stage II #Hyperlipidemia Patient plan of care was discussed with the attending physician, Dr. Nichols & senior resident Dr. Lb Rockwell MD PGY-1 Time Spent with Patient Time attestation: Total time spent providing and/or coordinating discharge services: Time spent: Greater than 30 minutes Quality: Stroke Pt Provided Written Stroke Discharge Instructions: Yes Exam Vital Signs Temp Pulse Resp BP Pulse Ox O2 Del Method O2 Flow Rate 98.3 F 88 12 165/114 H 97 Nasal Cannula 3 05/26/25 08:15 05/26/25 12:20 05/26/25 12:20 05/26/25 12:20 05/26/25 12:20 05/26/25 12:20 05/26/25 12:20 Narrative Exam General: No acute distress; A&Ox3 Skin: Warm, dry, intact, no obvious rash. HENT: NCAT, EOMI/PERRL, not icteric. External ears normal. No rhinorrhea. Moist mucous membranes Cardiovascular: Regular rate and rhythm, no murmur, +S1/S2. Respiratory: Lungs CTAB GI: Soft, nontender, non-distended. No guarding or rebound tenderness. : Erythematous genital region. No suprapubic tenderness. No flank tenderness bilaterally. Extremities: no edema, no cyanosis, no clubbing. Extremity pulses present Neuro: Grossly nonfocal. Moving all 4 extremities. CN not formally tested but appear grossly intact. Psychiatric: Cooperative, appropriate affect. Discharge Plan Plan Patient Disposition: HOME (Self Care) Care Plan Goals: - We are prescribing you aspirin 81 mg for cardiovascular protection, please take 1 by mouth per day - Follow with PCP regarding getting started on alcohol rehab and further counseling/management - Follow up with cardiology within 1 week for JULIÁN results ? Continue taking all other home medications as prescribed ? Follow-up with PCP within 1-2 weeks of discharge ? If you do not have a PCP, you can follow-up at the [facility] (you can call [phone] to make an appointment) ? Return to ED if symptoms worsen or recur Prescriptions/Referrals Prescriptions/Med Rec: New aspirin 81 mg Tablet,Delayed Release (Dr/Ec) 81 mg PO DAILY 30 Days Qty: 30 0RF atorvastatin [Lipitor] 40 mg tablet 40 mg PO HS 30 Days Qty: 30 0RF Continued lisinopril 10 mg tablet 10 mg PO QDAY cholecalciferol (vitamin D3) 1,250 mcg (50,000 unit) capsule 1,250 mcg PO QWEEK 42 Days Qty: 6 0RF ketoconazole 2 % cream 1 applic TOPICAL BID Patient Comments: APPLY 1 APPLICATION TOPICALLY TWICE A DAY FOR 7 DAYS Discontinued atorvastatin 20 mg tablet 20 mg PO QDAY Qty: 90 0RF Referrals: Mich Rene MD [Primary Care Provider, Family Practice] Patient/Caregiver Discharge Instructions Education Materials: Alcoholism Resources, Stroke Prevention Activity Print Language: Icelandic Stand Alone Forms: Daphney Award Info., Patient Portal Info Letter Discharge Order Discharge Orders: Discharge (Routine); Ordered 05/26/25 Ordered By: Mathew Rockwell Quality Discharge Quality Measures VTE prophylaxis Attestestation MD Attestation I have examined the patient, reviewed labs and imaging findings, discussed the case with the resident(s), and reviewed entered orders. I agree with the plan of care as outlined in this note. Time Spent: [address] Simone MD
--- NOTE | 2025-05-26 13:00 | PC.NURSE ---
1226 patient is awake, alert, breathing unlabored, s/p JULIÁN by Dr. Ventura, patient had small amount of bleeding noted to gums/teeth, gauze applied to mouth. Report received from Kae KOTHARI 1245 patient mouth no longer bleeding, gauze removed from mouth, mouth rinsed with water. 1300 patient is awake, alert, breathing unlabored, no bleeding noted to mouth, patient transferred back to room 261, bedside report given to Felicia KOTHARI.
--- NOTE | 2025-05-26 14:39 | PD.RESPRO ---
Documentation for date of: 05/26/25 Subjective Subjective Interval history: Patient seen at bedside, reported that the right hand numbness is now fully resolved. Patient got JULIÁN today. If negative, can discharge on aspirin 81 mg daily. No Plavix due to history of hemorrhagic stroke. Exam Vital Signs Temp Pulse Resp BP Pulse Ox O2 Del Method O2 Flow Rate 97.5 F 84 17 141/91 H 94 L Room Air 3 05/26/25 12:26 05/26/25 12:45 05/26/25 12:45 05/26/25 12:45 05/26/25 12:45 05/26/25 12:45 05/26/25 12:26 Narrative Exam Physical Exam General: Awake and in no acute distress. Conversational and non-toxic appearing. HEENT: Normocephalic, atraumatic, mucous membranes moist. Heart: Regular rate and rhythm, normal S1 and S2, no murmurs. Lungs: Clear to auscultation with no wheezing or crackles. Abdomen: Soft, nondistended, nontender, positive bowel sounds. ?No guarding or rebound tenderness. Neuro Stroke Exam: -Alert and oriented x3. -CN II-XII intact. -Normal visual hernadez. -Normal fluent speech. -No facial droop. 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 -Strength 5/5 bilateral lower extremities. -Resolved numbness reported over palm of right hand. Mild residual numbness (old) left hand). -Normal orfbax-zx-kvhy, normal halc-ae-bfde testing. Extremities: No edema. Skin: No rash or ecchymoses. Objective Labs 05/26/25 05:27 05/26/25 05:27 Labs: Laboratory Results - last 24 hr 05/26/25 05:27 WBC 4.9 RBC 4.69 Hgb 14.3 Hct 42.4 MCV 90 MCH 30.5 MCHC 33.7 RDW Std Deviation 40.8 Plt Count 168 Neut % (Auto) 59 Lymph % (Auto) 19 [place] % (Auto) 16 H Eos % (Auto) 5 Baso % (Auto) 1 Neut # (Auto) 2.9 Lymph # (Auto) 1.0 [place] # (Auto) 0.8 Eos # (Auto) 0.2 Baso # (Auto) 0.0 Immature Gran # (Auto) 0.01 H Absolute Nucleated RBC 0.00 Immature Gran % 0 Nucleated RBC % 0 Sodium 140 Potassium 3.4 D Chloride 101 Carbon Dioxide 26.5 Anion Gap 13 BUN 8 L Creatinine 0.8 Estim Creat Clear Calc 110.5 eGFR > 60 BUN/Creatinine Ratio 10 L Glucose 99 Calculated Osmolality 277 Calcium 9.3 Corrected Calcium 9.3 Phosphorus 3.2 Magnesium 1.6 Total Bilirubin 1.0 AST 51 H ALT 46 Alkaline Phosphatase 89 Total Protein 7.7 Albumin 4.5 Globulin 3.2 Albumin/Globulin Ratio 1.4 Quality Measures Quality Measures VTE prophylaxis Assessment & Plan Assessment Current Active Medications: Generic Name Dose Route Start Last Admin Trade Name Freq PRN Reason Stop Dose Admin Acetaminophen 650 mg 05/24/25 22:35 Acetaminophen 325 Mg Tablet PO 06/23/25 22:34 Q6H PRN Fever >100.4 Aspirin 81 mg 05/25/25 09:00 05/26/25 09:43 Aspirin Ec 81 Mg Tabec PO 06/24/25 08:59 81 mg DAILY SONG Administration Atorvastatin Calcium 40 mg 05/25/25 21:00 05/25/25 21:08 Atorvastatin Calcium 10 Mg Tablet PO 06/24/25 20:59 40 mg HS SONG Administration Chlordiazepoxide HCl 25 mg 05/25/25 22:00 05/26/25 14:05 Chlordiazepoxide Hcl 25 Mg Capsule PO 05/30/25 21:59 25 mg Q8HR SONG Administration Clopidogrel Bisulfate 75 mg 05/25/25 09:00 05/26/25 09:43 Clopidogrel Bisulfate 75 Mg Tablet PO 06/24/25 08:59 75 mg DAILY SONG Administration Diazepam 5 mg 05/24/25 22:44 Diazepam Inj 5 Mg/Ml Vial 2 Ml IVP X1 PRN Breakthrough Agitation Folic Acid 1 mg 05/25/25 09:00 05/26/25 09:43 Folic Acid 1 Mg Tablet PO 06/24/25 08:59 1 mg QDAY SONG Administration Heparin Sodium (Porcine) 5,000 unit 05/25/25 06:00 05/26/25 14:05 Heparin Sod Inj 5000 Unit/Ml Vial SC 06/08/25 05:59 5,000 unit Q8HR SONG Administration Lorazepam 0.5 mg 05/24/25 22:44 05/26/25 09:46 Lorazepam 0.5 Mg Tablet PO 05/29/25 22:43 0.5 mg Q4HR PRN Administration CIWA Score 2-6 Lorazepam 1 mg 05/24/25 22:44 05/25/25 09:14 Lorazepam 0.5 Mg Tablet PO 05/29/25 22:43 1 mg Q4HR PRN Administration CIWA SCORE 7-11 Lorazepam 2 mg 05/24/25 22:44 Lorazepam 0.5 Mg Tablet PO 05/29/25 22:43 Q4HR PRN CIWA SCORE 12-15 Ondansetron HCl 4 mg 05/24/25 22:35 Ondansetron Inj 2 Mg/Ml Inj 2 Ml IVP 06/23/25 22:34 Q6H PRN NAUSEA OR VOMITING Protocol Thiamine HCl 100 mg 05/25/25 09:00 05/26/25 09:43 Thiamine 100 Mg Tablet PO 06/24/25 08:59 100 mg QDAY SONG Administration Plan 50-year-old male past medical history of hemorrhagic CVA in 2019, hypertension, hyperlipidemia, brought in by his daughter to the ED in the evening of 05/24/2025 after a resolved episode of weakness in the right upper extremity admitted for stroke rule out and neuro consulted. #Right upper extremity paresthesias, resolved #Peripheral neuropathy vs. radial nerve palsy vs. TIA MRI showed old infarct and no new stroke. Echo showed positive bubble study, 60-65% EF, and grade I diastolic dysfunction Patient's presentation is concerning for radial nerve palsy, however he does not report falling asleep with arm in an outstretched position. TIA is also a differential. -Continue aspirin 81 mg qday -Discontinue Plavix due to history of hemorrhagic stroke -Proceeding with JULIÁN due to positive bubble study #Alcohol use disorder The patient drinks at least a 6-pack of beer daily. Per daughter patient had tried to quit in the past after his hemorrhagic stroke however patient went back to alcohol some time after that. -Patient was counseled on the risks of continuing alcohol use, advised complete cessation Rest of conditions to continue current management per primary team: #History of hypertension #History of hyperlipidemia Patient was discussed with the Neurology attending, Dr. Perez. Thank you for allowing us to participate in the care of this patient. Evelyn Sheets, PGY-3 Attending Provider Attestation/Addendum I personally have seen and examined the patient at the bedside and I agreed with the resident's findings assessment and plan of care. Patient's right upper extremity weakness and paresthesias have significantly improved and is back to normal functioning status. Reassurance given to the patient regarding the negative workup. Stable for discharge from neurology standpoint. Continue with aspirin 81.
== END 2025-05-26 16:55 | disposition home or self-care (01) | DRG 775 ==
LOC: SERX 20:49 → SERHOLD 22:51 → S2NX 05-25 00:14
PROVIDERS: Internal Medicine Cardiovascular Disease; Admitting Provider Student in an Organized Health Care Education/Training Program; Emergency Provider Emergency Medicine; PCP Family Medicine; Visit Provider Student in an Organized Health Care Education/Training Program
PROC: (CPT 93312; principal; 2025-05-26 11:30)
DX: F10.239 Alcohol dependence with withdrawal, unspecified (principal); R53.1 Weakness; R47.81 Slurred speech; E78.5 Hyperlipidemia, unspecified; Z86.73 Personal history of transient ischemic attack (TIA), and cerebral infarction without residual deficits; I10 Essential (primary) hypertension; R73.03 Prediabetes; I16.0 Hypertensive urgency; R20.2 Paresthesia of skin; K06.8 Other specified disorders of gingiva and edentulous alveolar ridge; Q21.12 Patent foramen ovale; Z79.82 Long term (current) use of aspirin; Z79.899 Other long term (current) drug therapy; Y90.8 Blood alcohol level of 240 mg/100 ml or more
CPT/HCPCS: 36415; 70450; 70496; 70498; 70553; 76705; 80053; 80061; 80307; 80320; 81001; 82140; 82607; 82746; 83036; 83735; 84100; 84443; 84484; 85025; 85610; 85730; 93005; 93306; 93312; 97162; 99152; 99285; A4649; A9577; J1644; J2250; J3010; J3411; J3475; J3490; J7030; J7050; Q9967; A9270; G0480